=== PATIENT | female | born 1985 | race Asian ===

== ENCOUNTER 2018-07-22 09:38 | Emergency (ER) | payer OTHER, MEDICAID, SELFPAY ==
[2018-07-22 09:40] VITALS: BP 102/79; PULSE 70; RESP 14; TEMP 36.6; O2SAT 100; BMI 17.9
--- NOTE | 2018-07-22 10:26 | PC.NURSE ---
states she might be miscarrying from her visit yesterday at [facility]-. states she is approx 4-5 weeks. also reported that she doesn't think there was a heart beat or maybe ectopic. ultrasound called.
--- NOTE | 2018-07-22 10:27 | DI.US.S_ITS ---
PROCEDURE: US PELVIC COMPLETE INDICATIONS: POSITIVE HCG; BLEEDING, PAIN TECHNIQUE: Real-time scanning was performed of the pelvic organs, with image documentation. Additional endovaginal scanning was necessary due to incomplete visualization of the adnexal and endometrial structures by transabdominal scanning. COMPARISON: [facility], US, US PELVIC COMPLETE WITH TRANSVAGINAL, 07/21/2018, 17:39. FINDINGS: Transabdominal scanning: Limited scanning through the kidneys shows no hydronephrosis. No pathologic free abdominal or pelvic fluid. Endovaginal scanning: Uterus: Uterus is normal in size at the 7.6 x 4.0 x 4.9 cm. The endometrium measures 4.9 mm in combined thickness. There is no visualized intrauterine . Ovaries: The right ovary measures 26 x 17 x 29 mm. The left ovary measures 20 x 22 x 25 mm. Within the region of the right ovary there is an isoechoic solid focus of heteroechogenicity measuring 17 x 10 x 13 mm. There is a suggestion of increased vascularity. This appears slightly more defined when compared to prior exam. Within the left ovary there is a complex focus of heteroechogenicity measuring 19 x 14 x 18 mm. Immediately adjacent to this a second focus of more solid-appearing heteroechogenicity is identified measuring 31 x 20 x 22 mm. Within the lower pelvis, fluid is present appearing complex and more prominent when compared to prior exam. IMPRESSION: 1. Bilateral foci of heteroechogenicity within the ovaries, with a right ovarian soft tissue focus appearing visualized on current exam with slight appearance of increased vascularity. Previous areas of complex echogenicity within the left ovary are again identified without change. However, these do not appear to demonstrate increased vascularity. In addition, since prior exam, there has been mild increased complex fluid within the pelvis. It is noted that there is a positive test. Overall appearance is highly suspicious of ectopic /rupture, with potentially hemorrhagic pelvic fluid. 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 Dictated by: Viridiana Barillas M.D. on 07/22/2018 at 12:28 Approved by: Viridiana Barillas M.D. on 07/22/2018 at 12:48
[2018-07-22 10:54] LABS: Hematocrit 38.7 % (36-46); Hemoglobin 12.8 g/dL (12.0-16.0)
[2018-07-22 11:22] LABS: HCG Quantitative /Beta subunit 248.54 mIU/mL
--- NOTE | 2018-07-22 11:34 | ED.FEMALEGU ---
HPI - Female Genitourinary General Chief complaint: OB/Uterine Contractions Stated complaint: CRAMPING Time Seen by Provider: 07/22/18 09:47 Source: patient and family Mode of arrival: ambulatory Limitations: no limitations History of Present Illness HPI Narrative: 32-year-old female, nonsmoker presents with family in the chief complaint of episodic lower pelvic cramping with spotting. She denies provocation, palliation or radiation. She also has some burning, frequency and urgency. She was seen and evaluated at [facility] yesterday and was found to have a urinary tract infection and was prescribed an antibiotic which she has yet to fill. Furthermore she was found to be and her last normal menstrual period was around the week of June. She had labs drawn yesterday including an ultrasound which was nondiagnostic. Her HCG was 182. She states she has used 2 pads today and change them when they became a bit bloody. She has not saturated the pads and denies the passage of clots. MD Complaint: dysuria, UTI and vaginal bleeding Onset (ago): day(s) Severity: mild Quality: Aching and Cramping Duration: intermittent Relieving factors: none Exacerbating factors: movement Urinary symptoms: Dysuria, Frequency and Urgency Associated symptoms: denies other symptoms Related Data Home Medications Medication Instructions Recorded Confirmed amoxicillin 1 cap PO BID 07/22/18 07/22/18 Allergies Allergy/AdvReac Type Severity Reaction Status Date / Time No Known Drug Allergies Allergy Verified 07/22/18 09:50 Review of Systems Review of Systems All systems reviewed & are unremarkable except as noted in HPI and below Constitutional Denies chills, Denies fever(s), Denies lethargy and Denies weakness Eyes Denies change in vision, Denies eye discharge, Denies irritation and Denies loss of vision ENT Ears, Nose, Mouth, and Throat: Denies change in voice, Denies neck pain and Denies sore throat Cardiovascular Denies chest pain, Denies irregular heart rhythm, Denies lightheadedness, Denies palpitations, Denies dyspnea, Denies dyspnea on exertion and Denies orthopnea Respiratory Denies cough, Denies dyspnea, Denies dyspnea on exertion and Denies wheezing Gastrointestinal Gastrointestinal: Reports abdominal pain, Denies change in bowel habits, Denies diarrhea, Denies nausea and Denies vomiting Genitourinary Reports abnormal vaginal bleeding, Denies hematuria, Denies flank pain, Denies urinary incontinence and Reports urinary urgency Musculoskeletal Denies neck pain Integumentary/Breasts Denies pruritus, Denies erythema, Denies rash and Denies wounds Neurologic Denies confusion, Denies loss of vision and Denies weakness Psychiatric Denies anxiety, Denies confusion, Denies depression, Denies homicidal ideation and Denies suicidal ideation Endocrine Denies palpitations Hematologic/Lymphatic Denies easy bruising Allergic/Immunologic Denies wheezing [facility] Medical History Chronic hepatitis B (Acute) Social History Smoking Status: Never smoker Exam Narrative Exam Narrative: GENERAL: 32-year-old female resting comfortably, no obvious distress HEAD: Atraumatic. Normocephalic. No temporal or scalp tenderness. EYES: Pupils equal round and reactive. Extraocular motions intact. No scleral icterus. No injection or drainage. ENT: Nose without bleeding, purulent drainage or septal hematoma. Throat without erythema, tonsillar hypertrophy or exudate. Uvula midline. Airway patent. NECK: Trachea midline. No JVD or lymphadenopathy. Supple, nontender, no meningeal signs. CARDIOVASCULAR: Regular rate and rhythm without murmurs, gallops, or rubs. RESPIRATORY: Clear to auscultation. Breath sounds equal bilaterally. No wheezes, rales, or rhonchi. GASTROINTESTINAL: Abdomen soft, mild suprapubic tenderness. No hepato-splenomegaly, or palpable masses. No guarding. EXTREMITIES: No clubbing, cyanosis, or edema. No joint tenderness, effusion, or edema noted. BACK: Nontender without deformity or crepitance. No flank tenderness. NEURO: AOx3. SKIN: No rash or erythema. Initial Vital Signs Initial Vital Signs: Vital Signs Temperature 97.8 F 07/22/18 09:40 Pulse Rate 70 07/22/18 09:40 Respiratory Rate 14 07/22/18 09:40 Blood Pressure 102/79 07/22/18 09:40 Pulse Oximetry 100 07/22/18 09:40 Course Orders Ordered: ED Orders 07/22/18 10:27 US pelvic complete Stat 07/22/18 10:45 ABO RH Type Stat HCG Quantitative Stat Hemoglobin and Hematocrit Stat Consultations Consultation #1: call to Dr. Grullon. Givens table vitals, exam, and H/H she is ok to follow up at 6-7 days when HCG should be above discriminatory zone. Sooner for change in symptoms Vital Signs - 8 hr 07/22/18 09:40 07/22/18 13:21 07/22/18 13:30 Temperature 97.8 F Pulse Rate 70 71 75 Respiratory Rate 14 14 15 Blood Pressure 102/79 Blood Pressure [Right Arm] 101/78 Pulse Oximetry 100 100 100 MDM - Female Genitourinary Differential Diagnosis Likely urinary tract infection Medical Records Attestation: I reviewed the patient's medical records. Lab Data Attestation: I reviewed the patient's lab results. Result diagrams: 07/22/18 10:45 Lab Results 07/22/18 07/22/18 07/22/18 Range/Units 10:45 10:45 10:45 Hgb 12.8 (12.0-16.0) g/dL Hct 38.7 (36-46) % HCG, Quant 248.54 mIU/mL Blood Type B Positive Imaging Data Pelvic US: Radiologist's impression: Jesus Junior 32 F 1985 Allergy/Adv: No Known Drug Allergies CLOSE Pelvis Ultrasound (Signed) Viridiana Barillas - 07/22/18 Launch Image [place] [address] Ultrasound Report Signed Patient: Jesus Junior MR#: [id number] : 1985 Acct:[id number] Age/Sex: 32 / F Date of Service: 07/22/18 Loc: ED Accession Number: [id number] Procedure: US pelvic complete Ordering Provider: Ej Trejo D.O. PROCEDURE: US PELVIC COMPLETE INDICATIONS: POSITIVE HCG; BLEEDING, PAIN TECHNIQUE: Real-time scanning was performed of the pelvic organs, with image documentation. Additional endovaginal scanning was necessary due to incomplete visualization of the adnexal and endometrial structures by transabdominal scanning. COMPARISON: [facility], , US PELVIC COMPLETE WITH TRANSVAGINAL, 07/21/2018, 17:39. FINDINGS: Transabdominal scanning: Limited scanning through the kidneys shows no hydronephrosis. No pathologic free abdominal or pelvic fluid. Endovaginal scanning: Uterus: Uterus is normal in size at the 7.6 x 4.0 x 4.9 cm. The endometrium measures 4.9 mm in combined thickness. There is no visualized intrauterine . Ovaries: The right ovary measures 26 x 17 x 29 mm. The left ovary measures 20 x 22 x 25 mm. Within the region of the right ovary there is an isoechoic solid focus of heteroechogenicity measuring 17 x 10 x 13 mm. There is a suggestion of increased vascularity. This appears slightly more defined when compared to prior exam. Within the left ovary there is a complex focus of heteroechogenicity measuring 19 x 14 x 18 mm. Immediately adjacent to this a second focus of more solid-appearing heteroechogenicity is identified measuring 31 x 20 x 22 mm. Within the lower pelvis, fluid is present appearing complex and more prominent when compared to prior exam. IMPRESSION: 1. Bilateral foci of heteroechogenicity within the ovaries, with a right ovarian soft tissue focus appearing visualized on current exam with slight appearance of increased vascularity. Previous areas of complex echogenicity within the left ovary are again identified without change. However, these do not appear to demonstrate increased vascularity. In addition, since prior exam, there has been mild increased complex fluid within the pelvis. It is noted that there is a positive test. Overall appearance is highly suspicious of ectopic /rupture, with potentially hemorrhagic pelvic fluid. 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 Dictated by: Viridiana Barillas M.D. on 07/22/2018 at 12:28 Approved by: Viridiana Barillas M.D. on 07/22/2018 at 12:48 Discharge Plan Departure Patient Disposition: Home Clinical Impression: UTI (urinary tract infection), Vaginal bleeding during Instructions: DI for Urinary Tract Infection (UTI), DI for Vaginal Bleeding During Activity Restrictions/Additional Instructions: *You have been diagnosed with [ acute urinary tract infection, bleeding in , possible early miscarriage vs ectopic] *What to do: *Take medications as directed *Your lab number (beta quantitative hcg) is 248. We do not expect to see anything on ultrasound until this number is over 1500. I would expect this number to be over 1500 in about a week. You should follow up in 1 week for repeat labs and possible ultrasound *Return to ER if you should have any new, worsening or concerning symptoms, such as [fever, shaking chills, bleeding through more than 1 pad per hour for more than few hours ] Prescriptions: No Action amoxicillin 500 mg capsule 1 cap PO BID RF: 0 Referrals: Dipti Grullon MD [Physician] - Jose Luis Win MD [Non-Staff] -
--- NOTE | 2018-07-22 11:43 | ED_ITS ---
HPI - Female Genitourinary General Chief complaint: OB/Uterine Contractions Stated complaint: CRAMPING Time Seen by Provider: 07/22/18 09:47 Source: patient and family Mode of arrival: ambulatory Limitations: no limitations History of Present Illness HPI Narrative: 32-year-old female, nonsmoker presents with family in the chief complaint of episodic lower pelvic cramping with spotting. She denies provocation, palliation or radiation. She also has some burning, frequency and urgency. She was seen and evaluated at [facility] yesterday and was found to have a urinary tract infection and was prescribed an antibiotic which she has yet to fill. Furthermore she was found to be and her last normal menstrual period was around the week of June. She had labs drawn yesterday including an ultrasound which was nondiagnostic. Her HCG was 182. She states she has used 2 pads today and change them when they became a bit bloody. She has not saturated the pads and denies the passage of clots. MD Complaint: dysuria, UTI and vaginal bleeding Onset (ago): day(s) Severity: mild Quality: Aching and Cramping Duration: intermittent Relieving factors: none Exacerbating factors: movement Urinary symptoms: Dysuria, Frequency and Urgency Associated symptoms: denies other symptoms Related Data Home Medications Medication Instructions Recorded Confirmed amoxicillin 1 cap PO BID 07/22/18 07/22/18 Allergies Allergy/AdvReac Type Severity Reaction Status Date / Time No Known Drug Allergies Allergy Verified 07/22/18 09:50 Review of Systems Review of Systems All systems reviewed & are unremarkable except as noted in HPI and below Constitutional Denies chills, Denies fever(s), Denies lethargy and Denies weakness Eyes Denies change in vision, Denies eye discharge, Denies irritation and Denies loss of vision ENT Ears, Nose, Mouth, and Throat: Denies change in voice, Denies neck pain and Denies sore throat Cardiovascular Denies chest pain, Denies irregular heart rhythm, Denies lightheadedness, Denies palpitations, Denies dyspnea, Denies dyspnea on exertion and Denies orthopnea Respiratory Denies cough, Denies dyspnea, Denies dyspnea on exertion and Denies wheezing Gastrointestinal Gastrointestinal: Reports abdominal pain, Denies change in bowel habits, Denies diarrhea, Denies nausea and Denies vomiting Genitourinary Reports abnormal vaginal bleeding, Denies hematuria, Denies flank pain, Denies urinary incontinence and Reports urinary urgency Musculoskeletal Denies neck pain Integumentary/Breasts Denies pruritus, Denies erythema, Denies rash and Denies wounds Neurologic Denies confusion, Denies loss of vision and Denies weakness Psychiatric Denies anxiety, Denies confusion, Denies depression, Denies homicidal ideation and Denies suicidal ideation Endocrine Denies palpitations Hematologic/Lymphatic Denies easy bruising Allergic/Immunologic Denies wheezing [facility] Medical History Chronic hepatitis B (Acute) Social History Smoking Status: Never smoker Exam Narrative Exam Narrative: GENERAL: 32-year-old female resting comfortably, no obvious distress HEAD: Atraumatic. Normocephalic. No temporal or scalp tenderness. EYES: Pupils equal round and reactive. Extraocular motions intact. No scleral icterus. No injection or drainage. ENT: Nose without bleeding, purulent drainage or septal hematoma. Throat without erythema, tonsillar hypertrophy or exudate. Uvula midline. Airway patent. NECK: Trachea midline. No JVD or lymphadenopathy. Supple, nontender, no meningeal signs. CARDIOVASCULAR: Regular rate and rhythm without murmurs, gallops, or rubs. RESPIRATORY: Clear to auscultation. Breath sounds equal bilaterally. No wheezes , rales, or rhonchi. GASTROINTESTINAL: Abdomen soft, mild suprapubic tenderness. No hepato- splenomegaly, or palpable masses. No guarding. EXTREMITIES: No clubbing, cyanosis, or edema. No joint tenderness, effusion, or edema noted. BACK: Nontender without deformity or crepitance. No flank tenderness. NEURO: AOx3. SKIN: No rash or erythema. Initial Vital Signs Initial Vital Signs: Vital Signs Temperature 97.8 F 07/22/18 09:40 Pulse Rate 70 07/22/18 09:40 Respiratory Rate 14 07/22/18 09:40 Blood Pressure 102/79 07/22/18 09:40 Pulse Oximetry 100 07/22/18 09:40 Course Orders Ordered: ED Orders 07/22/18 10:27 US pelvic complete Stat 07/22/18 10:45 ABO RH Type Stat HCG Quantitative Stat Hemoglobin and Hematocrit Stat Consultations Consultation #1: call to Dr. Grullon. Givens table vitals, exam, and H/H she is ok to follow up at 6-7 days when HCG should be above discriminatory zone. Sooner for change in symptoms Vital Signs - 8 hr 07/22/18 09:40 07/22/18 13:21 07/22/18 13:30 Temperature 97.8 F Pulse Rate 70 71 75 Respiratory Rate 14 14 15 Blood Pressure 102/79 Blood Pressure [Right Arm] 101/78 Pulse Oximetry 100 100 100 MDM - Female Genitourinary Differential Diagnosis Likely urinary tract infection Medical Records Attestation: I reviewed the patient's medical records. Lab Data Attestation: I reviewed the patient's lab results. Result diagrams: 07/22/18 10:45 Lab Results 07/22/18 07/22/18 07/22/18 Range/Units 10:45 10:45 10:45 Hgb 12.8 (12.0-16.0) g/dL Hct 38.7 (36-46) % HCG, Quant 248.54 mIU/mL Blood Type B Positive Imaging Data Pelvic US: Radiologist's impression: Jesus Junior 32 F 1985 Allergy/Adv: No Known Drug Allergies CLOSE Pelvis Ultrasound (Signed) Viridiana Barillas - 07/22/18 Launch [place] [address] Ultrasound Report Signed Patient: Jesus Junior MR#: [id number] : 1985 Acct:[id number] Age/Sex: 32 / F Date of Service: 07/22/18 Loc: ED Accession Number: [id number] Procedure: US pelvic complete Ordering Provider: Ej Trejo D.O. PROCEDURE: US PELVIC COMPLETE INDICATIONS: POSITIVE HCG; BLEEDING, PAIN TECHNIQUE: Real-time scanning was performed of the pelvic organs, with image documentation. Additional endovaginal scanning was necessary due to incomplete visualization of the adnexal and endometrial structures by transabdominal scanning. COMPARISON: [facility], , US PELVIC COMPLETE WITH TRANSVAGINAL, 07/21/2018, 17:39. FINDINGS: Transabdominal scanning: Limited scanning through the kidneys shows no hydronephrosis. No pathologic free abdominal or pelvic fluid. Endovaginal scanning: Uterus: Uterus is normal in size at the 7.6 x 4.0 x 4.9 cm. The endometrium measures 4.9 mm in combined thickness. There is no visualized intrauterine . Ovaries: The right ovary measures 26 x 17 x 29 mm. The left ovary measures 20 x 22 x 25 mm. Within the region of the right ovary there is an isoechoic solid focus of heteroechogenicity measuring 17 x 10 x 13 mm. There is a suggestion of increased vascularity. This appears slightly more defined when compared to prior exam. Within the left ovary there is a complex focus of heteroechogenicity measuring 19 x 14 x 18 mm. Immediately adjacent to this a second focus of more solid-appearing heteroechogenicity is identified measuring 31 x 20 x 22 mm. Within the lower pelvis, fluid is present appearing complex and more prominent when compared to prior exam. IMPRESSION: 1. Bilateral foci of heteroechogenicity within the ovaries, with a right ovarian soft tissue focus appearing visualized on current exam with slight appearance of increased vascularity. Previous areas of complex echogenicity within the left ovary are again identified without change. However, these do not appear to demonstrate increased vascularity. In addition, since prior exam, there has been mild increased complex fluid within the pelvis. It is noted that there is a positive test. Overall appearance is highly suspicious of ectopic /rupture, with potentially hemorrhagic pelvic fluid. 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 Dictated by: Viridiana Barillas M.D. on 07/22/2018 at 12:28 Approved by: Viridiana Barillas M.D. on 07/22/2018 at 12:48 Discharge Plan Departure Patient Disposition: Home Clinical Impression: UTI (urinary tract infection), Vaginal bleeding during Instructions: DI for Urinary Tract Infection (UTI), DI for Vaginal Bleeding During Activity Restrictions/Additional Instructions: *You have been diagnosed with [ acute urinary tract infection, bleeding in , possible early miscarriage vs ectopic] *What to do: *Take medications as directed *Your lab number (beta quantitative hcg) is 248. We do not expect to see anything on ultrasound until this number is over 1500. I would expect this number to be over 1500 in about a week. You should follow up in 1 week for repeat labs and possible ultrasound *Return to ER if you should have any new, worsening or concerning symptoms , such as [fever, shaking chills, bleeding through more than 1 pad per hour for more than few hours ] Prescriptions: No Action amoxicillin 500 mg capsule 1 cap PO BID RF: 0 Referrals: Dipti Grullon MD [Physician] - Jose Luis Win MD [Non-Staff] -
[2018-07-22 13:21] VITALS: PULSE 71; RESP 14; O2SAT 100
[2018-07-22 13:30] VITALS: BP 101/78; PULSE 75; RESP 15; O2SAT 100
== END 2018-07-22 13:47 | disposition home or self-care (01) ==
PROVIDERS: Emergency Provider Emergency Medicine
DX: O23.41 Unspecified infection of urinary tract in pregnancy, first trimester (principal); O20.9 Hemorrhage in early pregnancy, unspecified
CPT/HCPCS: 36415; 76830; 76856; 84702; 85014; 85018; 86900; 86901; 99282; 99284

== ENCOUNTER 2018-07-28 15:38 | Emergency (ER) | payer OTHER, MEDICAID, SELFPAY ==
[2018-07-28 15:45] VITALS: BP 111/70; PULSE 85; RESP 20; TEMP 36.6; O2SAT 97
--- NOTE | 2018-07-28 16:39 | ED.RECABL ---
HPI - Recheck/Abnormal Lab/Rx <RHODA Tipton - Last Filed: 07/28/18 21:27> General Chief Complaint: Recheck/Abnormal Lab/Rx Stated Complaint: uti,vaginal bleeding during Time Seen by Provider: 07/28/18 16:39 Source: patient Mode of arrival: ambulatory Limitations: no limitations History of Present Illness HPI narrative: 32-year-old healthy female that is a nonsmoker here for complaint of continued left lower quadrant pain over the past couple of weeks. She also reports that she has had vaginal bleeding since the of July. She was seen in the emergency room on the sec and had a positive hcg of 250. Ultrasound was un conclusive but did show an area that appeared to be a cyst to the left ovarian area. No intrauterine findings were appreciated. She reports that she is using approximately 2 pads a day. Pain is mostly to the left pubic region and does radiate to the right side. She denies any urinary symptoms. She was unable to follow up with OB as instructed so she return to the emergency room. Related Data Previous Rx's Medication Instructions Recorded oxycodone 5 mg PO Q4-6H PRN #20 tab 07/28/18 Allergies Allergy/AdvReac Type Severity Reaction Status Date / Time No Known Drug Allergies Allergy Verified 07/22/18 09:50 Review of Systems <RHODA Tipton - Last Filed: 07/28/18 21:27> Constitutional Denies chills, Denies fever(s), Denies lethargy and Denies weakness Eyes Denies change in vision, Denies eye discharge, Denies irritation and Denies loss of vision ENT Ears, Nose, Mouth, and Throat: Denies change in voice, Denies neck pain and Denies sore throat Cardiovascular Denies chest pain, Denies irregular heart rhythm, Denies lightheadedness, Denies palpitations, Denies dyspnea, Denies dyspnea on exertion and Denies orthopnea Respiratory Denies cough, Denies dyspnea, Denies dyspnea on exertion and Denies wheezing Gastrointestinal Gastrointestinal: Denies abdominal pain, Denies change in bowel habits, Denies diarrhea, Denies nausea and Denies vomiting Genitourinary Comments: Left pelvic pain vaginal bleeding with Musculoskeletal Denies neck pain Integumentary/Breasts Denies pruritus, Denies erythema, Denies rash and Denies wounds Neurologic Denies confusion, Denies loss of vision and Denies weakness Psychiatric Denies anxiety, Denies confusion, Denies depression, Denies homicidal ideation and Denies suicidal ideation Endocrine Denies palpitations Hematologic/Lymphatic Denies easy bruising Allergic/Immunologic Denies wheezing Exam <RHODA Tipton - Last Filed: 07/28/18 21:27> Initial Vital Signs Initial Vital Signs: Vital Signs Temperature 97.8 F 07/28/18 15:45 Pulse Rate 85 07/28/18 15:45 Respiratory Rate 20 07/28/18 15:45 Blood Pressure 111/70 07/28/18 15:45 Pulse Oximetry 97 07/28/18 15:45 Const General: cooperative and well developed Nutritional Appearance: well nourished Orientation: alert, awake, oriented x3 and not confused HENMT Mouth: oral mucosae normal and moist mucous membranes Eyes Conjunctivae: conjunctivae normal Sclera: sclerae normal Pupils: PERRL EOM: EOM intact bilaterally Resp Effort & Inspection: normal respiratory effort, able to speak in complete sentences, no respiratory distress and no use of accessory muscles Auscultation: clear to auscultation bilaterally, no rales, no rhonchi and no wheezes Cardio Rate: regular rate Rhythm: regular rhythm Heart Sounds: no click, no gallops, no murmurs and no rubs Pulses: normal peripheral pulses GI Inspection: non-distended Palpation: soft, no hepatosplenomegaly, No guarding, No pulsatile mass and tender Auscultation: normal bowel sounds Other: Tenderness on palpation to the left pelvic region. General: No CVA tenderness Skin General: no rashes or lesions noted, No jaundice and No petechiae Neuro General: alert, oriented x3, gait normal and no focal motor deficits Speech: speech normal <Natasha Paniagua DO - Last Filed: 07/29/18 04:13> Initial Vital Signs Initial Vital Signs: Vital Signs Temperature 97.8 F 07/28/18 15:45 Pulse Rate 85 07/28/18 15:45 Respiratory Rate 20 07/28/18 15:45 Blood Pressure 111/70 07/28/18 15:45 Pulse Oximetry 97 07/28/18 15:45 Course <RHODA Tipton - Last Filed: 07/28/18 21:27> Orders Ordered: Discontinued Medications Oxycodone/Acetaminophen (Percocet 5/325) 1 tab PO NOW ONE Stop: 07/28/18 19:20 Last Admin: 07/28/18 19:31 Dose: 1 tab Rho Immune Globulin (Hyperrho S-D) 1,000 unit IM NOW ONE Stop: 07/28/18 20:31 Vital Signs - 8 hr 07/28/18 15:45 07/28/18 17:07 07/28/18 19:41 Temperature 97.8 F Pulse Rate 85 81 83 Respiratory Rate 20 16 17 Blood Pressure 111/70 Blood Pressure [Right Arm] 96/61 105/81 Pulse Oximetry 97 100 99 <Natasha Paniagua DO - Last Filed: 07/29/18 04:13> Orders Ordered: Discontinued Medications Oxycodone/Acetaminophen (Percocet 5/325) 1 tab PO NOW ONE Stop: 07/28/18 19:20 Last Admin: 07/28/18 19:31 Dose: 1 tab Rho Immune Globulin (Hyperrho S-D) 1,000 unit IM NOW ONE Stop: 07/28/18 20:31 Vital Signs - 8 hr 07/28/18 15:45 07/28/18 17:07 07/28/18 19:41 Temperature 97.8 F Pulse Rate 85 81 83 Respiratory Rate 20 16 17 Blood Pressure 111/70 Blood Pressure [Right Arm] 96/61 105/81 Pulse Oximetry 97 100 99 MDM - Recheck/Abnormal Lab/Rx <RHODA Tipton - Last Filed: 07/28/18 21:27> Lab Data Result diagrams: 07/28/18 17:40 07/28/18 17:40 Lab Results 07/28/18 07/28/18 Range/Units 17:40 17:40 WBC 9.3 (4.5-11.0) X10^3/uL RBC 3.97 L (4.0-5.2) X10^6/uL Hgb 12.0 (12.0-16.0) g/dL Hct 36.0 (36-46) % MCV 90.6 (80-100) fL MCH 30.3 (26-34) PG MCHC 33.4 (30-36) % RDW 13.9 (11.6-14.8) % Plt Count 254 (150-400) X10^3/uL Neut % (Auto) 59.2 (50-75) % Lymph % (Auto) 31.8 (25-40) % [place] % (Auto) 4.4 (3-14) % Eos % (Auto) 3.4 (2-4) % Baso % (Auto) 1.2 (0-2) % Neut # (Auto) 5500 (3062-9957) /uL Sodium 142 (137-145) mmol/L Potassium 4.0 (3.4-5.1) mmol/L Chloride 103 (98-107) mmol/L Carbon Dioxide 26 (22-32) mmol/L BUN 17 (7-17) mg/dL Creatinine 0.60 (0.52-1.04) mg/dL Estimated GFR > 60.0 (>60) mL/min BUN/Creatinine Ratio 28.3 H (6-22) Glucose 81 (70-100) mg/dL Calcium 9.6 (8.4-10.2) mg/dL Total Bilirubin 0.2 (0.2-1.3) mg/dL AST 22 (14-36) IU/L ALT 18 (9-52) IU/L Alkaline Phosphatase 51 (38-126) U/L Total Protein 8.0 (6.3-8.2) g/dL Albumin 4.5 (3.5-5.0) g/dL Globulin 3.5 (1.7-4.1) g/dL Albumin/Globulin Ratio 1.3 (1.0-2.8) HCG, Quant 193.46 mIU/mL Urine Dip Bedside Urine Glucose Negative Bedside Urine Bilirubin - Negative Bedside Urine Ketone - Negative Urine Specific [place] 1.020 Bedside Urine Occult Blood + Bedside Urine pH 7.0 Bedside Urine Protein - Negative Bedside Urine Urobilinogen - Negative Bedside Urine Nitrite - Negative Bedside Urine Leukocytes - Negative Esterase Imaging Data Ob ultrasound : Radiologist's impression: [address] [address] Ultrasound Report Signed Patient: Jesus Junior MR#: [id number] : 1985 Acct:[id number] Age/Sex: 32 / F Date of Service: 07/28/18 Loc: ED Accession Number: [id number] Procedure: US pelvic complete Ordering Provider: Flakito Chicas PROCEDURE: US PELVIC COMPLETE INDICATIONS: Continued vaginal bleeding with positive TECHNIQUE: Real-time scanning was performed of the pelvic organs, with image documentation. Additional endovaginal scanning was necessary due to incomplete visualization of the adnexal and endometrial structures by transabdominal scanning. COMPARISON: [facility], US, US PELVIC COMPLETE, 07/22/2018, 11:19. FINDINGS: Transabdominal scanning: Limited scanning through the kidneys shows no hydronephrosis. Moderate abnormal complex adnexal fluid is seen, which is consistent with hemorrhage. Endovaginal scanning: Uterus: Uterus is normal in size at the 6.9 x 3.3 cm. The endometrium measures 4 mm in combined thickness. No findings of an intrauterine can be seen. Ovaries: The left ovary is not definitely seen. 2 masses are seen within the left adnexal region, with one demonstrating an apparent gestational sac with yolk sac with in it, with a mean gestational sac diameter of 0.6 cm, which corresponds to a gestational age of 5 weeks 2 days. This larger mass measures 3.9 x 2.1 x 2.3 cm. An additional left adnexal mass is seen measuring 2.1 x 1.7 x 1.8 cm. The right ovary measures 2.4 x 1.5 x 2.1 cm and demonstrates no significant abnormality. IMPRESSION: Ectopic until proven otherwise, with a mass with an apparent yolk sac seen within it within the left adnexal region. Free hemorrhagic fluid can be seen within the pelvis. Note: Concordant preliminary findings given by the aircraft powerplant repairer upon the completion of the examination to RHODA Tipton at 1740 hrs. [place] time on July 28, 2018. Dictated by: Jorge Gill M.D. on 07/28/2018 at 16:58 Approved by: Jorge Gill M.D. on 07/28/2018 at 17:04 MDM Narrative Medical decision making narrative: CBC and Chem panel were obtained were unremarkable. ECG was decreased today at 193 compared to 248 on the . Ultrasound was obtained and shows no intrauterine products of conception. It was read by Radiology as showing findings concerning for ectopic . Discussed case with Dr. Janis AGEE who came and evaluated patient will follow up with patient next week. Dr. Bruce thinks that her symptoms is due to a corpus luteum cyst vice ectopic . She is instructed to return emergency room for any worsening symptoms follow-up with OBGYN as directed. <Natasha Arcelia, DO - Last Filed: 07/29/18 04:13> Lab Data Lab Results 07/28/18 07/28/18 Range/Units 17:40 17:40 WBC 9.3 (4.5-11.0) X10^3/uL RBC 3.97 L (4.0-5.2) X10^6/uL Hgb 12.0 (12.0-16.0) g/dL Hct 36.0 (36-46) % MCV 90.6 (80-100) fL MCH 30.3 (26-34) PG MCHC 33.4 (30-36) % RDW 13.9 (11.6-14.8) % Plt Count 254 (150-400) X10^3/uL Neut % (Auto) 59.2 (50-75) % Lymph % (Auto) 31.8 (25-40) % [place] % (Auto) 4.4 (3-14) % Eos % (Auto) 3.4 (2-4) % Baso % (Auto) 1.2 (0-2) % Neut # (Auto) 5500 (6258-2510) /uL Sodium 142 (137-145) mmol/L Potassium 4.0 (3.4-5.1) mmol/L Chloride 103 (98-107) mmol/L Carbon Dioxide 26 (22-32) mmol/L BUN 17 (7-17) mg/dL Creatinine 0.60 (0.52-1.04) mg/dL Estimated GFR > 60.0 (>60) mL/min BUN/Creatinine Ratio 28.3 H (6-22) Glucose 81 (70-100) mg/dL Calcium 9.6 (8.4-10.2) mg/dL Total Bilirubin 0.2 (0.2-1.3) mg/dL AST 22 (14-36) IU/L ALT 18 (9-52) IU/L Alkaline Phosphatase 51 (38-126) U/L Total Protein 8.0 (6.3-8.2) g/dL Albumin 4.5 (3.5-5.0) g/dL Globulin 3.5 (1.7-4.1) g/dL Albumin/Globulin Ratio 1.3 (1.0-2.8) HCG, Quant 193.46 mIU/mL Urine Dip Bedside Urine Glucose Negative Bedside Urine Bilirubin - Negative Bedside Urine Ketone - Negative Urine Specific [place] 1.020 Bedside Urine Occult Blood + Bedside Urine pH 7.0 Bedside Urine Protein - Negative Bedside Urine Urobilinogen - Negative Bedside Urine Nitrite - Negative Bedside Urine Leukocytes - Negative Esterase Discharge Plan Departure Patient Disposition: Home Clinical Impression: Corpus luteum cyst, Spontaneous Discharge Date/Time: 07/28/18 19:53 Interventions: ED Discharge Assessment Last Done: 07/28/18 19:49 Instructions: DI for Ovarian Cyst Activity Restrictions/Additional Instructions: Laboratory results today show a decrease in HCG indicating that is no longer viable. Ultrasound findings consistent with ovarian cyst to the left ovary area. OBGYN seen you in the emergency room today and will follow up with you next week. Follow up with them as scheduled. Use pain medications as prescribed for discomfort. For any worsening symptoms return to the emergency room. Prescriptions: New oxycodone 5 mg tablet 5 mg PO Q4-6H PRN (Reason: pain) Qty: 20 RF: 0 Discontinued amoxicillin 500 mg capsule 1 cap PO BID RF: 0 Referrals: Jakob Bruce MD [Physician] - Jose Luis Win MD [Non-Staff] - 08/04/18 12:00 am Stand Alone Forms: Work Release Note <Natasha Paniagua DO - Last Filed: 07/29/18 04:13> Cosign ED Attending Qamarature Attestation: I was immediately available in the department for consultation. Documentation has been reviewed. I agree with assessment and plan.
[2018-07-28 17:07] VITALS: BP 96/61; PULSE 81; RESP 16; O2SAT 100
--- NOTE | 2018-07-28 17:12 | DI.US.S_ITS ---
PROCEDURE: US PELVIC COMPLETE INDICATIONS: Continued vaginal bleeding with positive TECHNIQUE: Real-time scanning was performed of the pelvic organs, with image documentation. Additional endovaginal scanning was necessary due to incomplete visualization of the adnexal and endometrial structures by transabdominal scanning. COMPARISON: [facility], , US PELVIC COMPLETE, 07/22/2018, 11:19. FINDINGS: Transabdominal scanning: Limited scanning through the kidneys shows no hydronephrosis. Moderate abnormal complex adnexal fluid is seen, which is consistent with hemorrhage. Endovaginal scanning: Uterus: Uterus is normal in size at the 6.9 x 3.3 cm. The endometrium measures 4 mm in combined thickness. No findings of an intrauterine can be seen. Ovaries: The left ovary is not definitely seen. 2 masses are seen within the left adnexal region, with one demonstrating an apparent gestational sac with yolk sac with in it, with a mean gestational sac diameter of 0.6 cm, which corresponds to a gestational age of 5 weeks 2 days. This larger mass measures 3.9 x 2.1 x 2.3 cm. An additional left adnexal mass is seen measuring 2.1 x 1.7 x 1.8 cm. The right ovary measures 2.4 x 1.5 x 2.1 cm and demonstrates no significant abnormality. IMPRESSION: Ectopic until proven otherwise, with a mass with an apparent yolk sac seen within it within the left adnexal region. Free hemorrhagic fluid can be seen within the pelvis. Note: Concordant preliminary findings given by the livestock haulier upon the completion of the examination to RHODA Tipton at 1740 hrs. [place] time on July 28, 2018. Dictated by: Jorge Gill M.D. on 07/28/2018 at 16:58 Approved by: Jorge Gill M.D. on 07/28/2018 at 17:04
[2018-07-28 17:45] LABS: Add Manual Diff / Slide Review NO; Basophils Percent Auto 1.2 % (0-2); Eosinophils Percent Auto 3.4 % (2-4); Lymphocytes Percent Auto 31.8 % (25-40); Mean Corpuscular HGB Conc 33.4 % (30-36); Mean Corpuscular Hemoglobin 30.3 PG (26-34); Mean Corpuscular Volume 90.6 fL (80-100); Monocytes Percent Auto 4.4 % (3-14); Neutrophils Absolute Auto 5500 /uL (1500-7000); Neutrophils Percent Auto 59.2 % (50-75); Platelet Count 254 X10^3/uL (150-400); Red Blood Cell Count 3.97 X10^6/uL (4.0-5.2); Red Cell Distribution Width 13.9 % (11.6-14.8); White Blood Cell Count 9.3 X10^3/uL (4.5-11.0)
[2018-07-28 18:03] LABS: Alanine Aminotransferase 18 IU/L (9-52); Albumin 4.5 g/dL (3.5-5.0); Albumin Globulin Ratio 1.3 (1.0-2.8); Alkaline Phosphatase 51 U/L (38-126); Aspartate Aminotransferase 22 IU/L (14-36); BUN Creatinine Ratio 28.3 (6-22); Bilirubin Total 0.2 mg/dL (0.2-1.3); Blood Urea Nitrogen 17 mg/dL (7-17); Calcium 9.6 mg/dL (8.4-10.2); Carbon Dioxide 26 mmol/L (22-32); Chloride 103 mmol/L (98-107); Estimated Glomerular Filt Rate > 60.0 mL/min (>60); Globulin 3.5 g/dL (1.7-4.1); Glucose 81 mg/dL (70-100); HEMOLYSIS < 15 (0-50); Sodium 142 mmol/L (137-145)
[2018-07-28 18:19] LABS: HCG Quantitative /Beta subunit 193.46 mIU/mL
--- NOTE | 2018-07-28 18:54 | ED_ITS ---
HPI - Recheck/Abnormal Lab/Rx <RHODA Tipton - Last Filed: 07/28/18 21:27> General Chief Complaint: Recheck/Abnormal Lab/Rx Stated Complaint: uti,vaginal bleeding during Time Seen by Provider: 07/28/18 16:39 Source: patient Mode of arrival: ambulatory Limitations: no limitations History of Present Illness HPI narrative: 32-year-old healthy female that is a nonsmoker here for complaint of continued left lower quadrant pain over the past couple of weeks. She also reports that she has had vaginal bleeding since the of July. She was seen in the emergency room on the sec and had a positive hcg of 250. Ultrasound was un conclusive but did show an area that appeared to be a cyst to the left ovarian area. No intrauterine findings were appreciated. She reports that she is using approximately 2 pads a day. Pain is mostly to the left pubic region and does radiate to the right side. She denies any urinary symptoms. She was unable to follow up with OB as instructed so she return to the emergency room. Related Data Previous Rx's Medication Instructions Recorded oxycodone 5 mg PO Q4-6H PRN #20 tab 07/28/18 Allergies Allergy/AdvReac Type Severity Reaction Status Date / Time No Known Drug Allergies Allergy Verified 07/22/18 09:50 Review of Systems <RHODA Tipton - Last Filed: 07/28/18 21:27> Constitutional Denies chills, Denies fever(s), Denies lethargy and Denies weakness Eyes Denies change in vision, Denies eye discharge, Denies irritation and Denies loss of vision ENT Ears, Nose, Mouth, and Throat: Denies change in voice, Denies neck pain and Denies sore throat Cardiovascular Denies chest pain, Denies irregular heart rhythm, Denies lightheadedness, Denies palpitations, Denies dyspnea, Denies dyspnea on exertion and Denies orthopnea Respiratory Denies cough, Denies dyspnea, Denies dyspnea on exertion and Denies wheezing Gastrointestinal Gastrointestinal: Denies abdominal pain, Denies change in bowel habits, Denies diarrhea, Denies nausea and Denies vomiting Genitourinary Comments: Left pelvic pain vaginal bleeding with Musculoskeletal Denies neck pain Integumentary/Breasts Denies pruritus, Denies erythema, Denies rash and Denies wounds Neurologic Denies confusion, Denies loss of vision and Denies weakness Psychiatric Denies anxiety, Denies confusion, Denies depression, Denies homicidal ideation and Denies suicidal ideation Endocrine Denies palpitations Hematologic/Lymphatic Denies easy bruising Allergic/Immunologic Denies wheezing Exam <RHODA Tipton - Last Filed: 07/28/18 21:27> Initial Vital Signs Initial Vital Signs: Vital Signs Temperature 97.8 F 07/28/18 15:45 Pulse Rate 85 07/28/18 15:45 Respiratory Rate 20 07/28/18 15:45 Blood Pressure 111/70 07/28/18 15:45 Pulse Oximetry 97 07/28/18 15:45 Const General: cooperative and well developed Nutritional Appearance: well nourished Orientation: alert, awake, oriented x3 and not confused HENMT Mouth: oral mucosae normal and moist mucous membranes Eyes Conjunctivae: conjunctivae normal Sclera: sclerae normal Pupils: PERRL EOM: EOM intact bilaterally Resp Effort & Inspection: normal respiratory effort, able to speak in complete sentences, no respiratory distress and no use of accessory muscles Auscultation: clear to auscultation bilaterally, no rales, no rhonchi and no wheezes Cardio Rate: regular rate Rhythm: regular rhythm Heart Sounds: no click, no gallops, no murmurs and no rubs Pulses: normal peripheral pulses GI Inspection: non-distended Palpation: soft, no hepatosplenomegaly, No guarding, No pulsatile mass and tender Auscultation: normal bowel sounds Other: Tenderness on palpation to the left pelvic region. General: No CVA tenderness Skin General: no rashes or lesions noted, No jaundice and No petechiae Neuro General: alert, oriented x3, gait normal and no focal motor deficits Speech: speech normal <Natasha Paniagua DO - Last Filed: 07/29/18 04:13> Initial Vital Signs Initial Vital Signs: Vital Signs Temperature 97.8 F 07/28/18 15:45 Pulse Rate 85 07/28/18 15:45 Respiratory Rate 20 07/28/18 15:45 Blood Pressure 111/70 07/28/18 15:45 Pulse Oximetry 97 07/28/18 15:45 Course <RHODA Tipton - Last Filed: 07/28/18 21:27> Orders Ordered: Discontinued Medications Oxycodone/Acetaminophen (Percocet 5/325) 1 tab PO NOW ONE Stop: 07/28/18 19:20 Last Admin: 07/28/18 19:31 Dose: 1 tab Rho Immune Globulin (Hyperrho S-D) 1,000 unit IM NOW ONE Stop: 07/28/18 20:31 Vital Signs - 8 hr 07/28/18 15:45 07/28/18 17:07 07/28/18 19:41 Temperature 97.8 F Pulse Rate 85 81 83 Respiratory Rate 20 16 17 Blood Pressure 111/70 Blood Pressure [Right Arm] 96/61 105/81 Pulse Oximetry 97 100 99 <Natasha Paniagua DO - Last Filed: 07/29/18 04:13> Orders Ordered: Discontinued Medications Oxycodone/Acetaminophen (Percocet 5/325) 1 tab PO NOW ONE Stop: 07/28/18 19:20 Last Admin: 07/28/18 19:31 Dose: 1 tab Rho Immune Globulin (Hyperrho S-D) 1,000 unit IM NOW ONE Stop: 07/28/18 20:31 Vital Signs - 8 hr 07/28/18 15:45 07/28/18 17:07 07/28/18 19:41 Temperature 97.8 F Pulse Rate 85 81 83 Respiratory Rate 20 16 17 Blood Pressure 111/70 Blood Pressure [Right Arm] 96/61 105/81 Pulse Oximetry 97 100 99 MDM - Recheck/Abnormal Lab/Rx <RHODA Tipton - Last Filed: 07/28/18 21:27> Lab Data Result diagrams: 07/28/18 17:40 07/28/18 17:40 Lab Results 07/28/18 07/28/18 Range/Units 17:40 17:40 WBC 9.3 (4.5-11.0) X10^3/uL RBC 3.97 L (4.0-5.2) X10^6/uL Hgb 12.0 (12.0-16.0) g/dL Hct 36.0 (36-46) % MCV 90.6 (80-100) fL MCH 30.3 (26-34) PG MCHC 33.4 (30-36) % RDW 13.9 (11.6-14.8) % Plt Count 254 (150-400) X10^3/uL Neut % (Auto) 59.2 (50-75) % Lymph % (Auto) 31.8 (25-40) % [place] % (Auto) 4.4 (3-14) % Eos % (Auto) 3.4 (2-4) % Baso % (Auto) 1.2 (0-2) % Neut # (Auto) 5500 (8333-2227) /uL Sodium 142 (137-145) mmol/L Potassium 4.0 (3.4-5.1) mmol/L Chloride 103 (98-107) mmol/L Carbon Dioxide 26 (22-32) mmol/L BUN 17 (7-17) mg/dL Creatinine 0.60 (0.52-1.04) mg/dL Estimated GFR > 60.0 (>60) mL/min BUN/Creatinine Ratio 28.3 H (6-22) Glucose 81 (70-100) mg/dL Calcium 9.6 (8.4-10.2) mg/dL Total Bilirubin 0.2 (0.2-1.3) mg/dL AST 22 (14-36) IU/L ALT 18 (9-52) IU/L Alkaline Phosphatase 51 (38-126) U/L Total Protein 8.0 (6.3-8.2) g/dL Albumin 4.5 (3.5-5.0) g/dL Globulin 3.5 (1.7-4.1) g/dL Albumin/Globulin Ratio 1.3 (1.0-2.8) HCG, Quant 193.46 mIU/mL Urine Dip Bedside Urine Glucose Negative Bedside Urine Bilirubin - Negative Bedside Urine Ketone - Negative Urine Specific [place] 1.020 Bedside Urine Occult Blood + Bedside Urine pH 7.0 Bedside Urine Protein - Negative Bedside Urine Urobilinogen - Negative Bedside Urine Nitrite - Negative Bedside Urine Leukocytes - Negative Esterase Imaging Data Ob ultrasound : Radiologist's impression: [address] [address] Ultrasound Report Signed Patient: Jesus Junior MR#: [id number] : 1985 Acct:[id number] Age/Sex: 32 / F Date of Service: 07/28/18 Loc: ED Accession Number: [id number] Procedure: US pelvic complete Ordering Provider: Flakito Chicas PROCEDURE: US PELVIC COMPLETE INDICATIONS: Continued vaginal bleeding with positive TECHNIQUE: Real-time scanning was performed of the pelvic organs, with image documentation. Additional endovaginal scanning was necessary due to incomplete visualization of the adnexal and endometrial structures by transabdominal scanning. COMPARISON: [facility], US, US PELVIC COMPLETE, 07/22/2018, 11:19. FINDINGS: Transabdominal scanning: Limited scanning through the kidneys shows no hydronephrosis. Moderate abnormal complex adnexal fluid is seen, which is consistent with hemorrhage. Endovaginal scanning: Uterus: Uterus is normal in size at the 6.9 x 3.3 cm. The endometrium measures 4 mm in combined thickness. No findings of an intrauterine can be seen. Ovaries: The left ovary is not definitely seen. 2 masses are seen within the left adnexal region, with one demonstrating an apparent gestational sac with yolk sac with in it, with a mean gestational sac diameter of 0.6 cm, which corresponds to a gestational age of 5 weeks 2 days. This larger mass measures 3.9 x 2.1 x 2.3 cm. An additional left adnexal mass is seen measuring 2.1 x 1.7 x 1.8 cm. The right ovary measures 2.4 x 1.5 x 2.1 cm and demonstrates no significant abnormality. IMPRESSION: Ectopic until proven otherwise, with a mass with an apparent yolk sac seen within it within the left adnexal region. Free hemorrhagic fluid can be seen within the pelvis. Note: Concordant preliminary findings given by the pharmacy delivery driver upon the completion of the examination to RHODA Tipton at 1740 hrs. [place] time on July 28, 2018. Dictated by: Jorge Gill M.D. on 07/28/2018 at 16:58 Approved by: Jorge Gill M.D. on 07/28/2018 at 17:04 MDM Narrative Medical decision making narrative: CBC and Chem panel were obtained were unremarkable. ECG was decreased today at 193 compared to 248 on the . Ultrasound was obtained and shows no intrauterine products of conception. It was read by Radiology as showing findings concerning for ectopic . Discussed case with Dr. Janis AGEE who came and evaluated patient will follow up with patient next week. Dr. Bruce thinks that her symptoms is due to a corpus luteum cyst vice ectopic . She is instructed to return emergency room for any worsening symptoms follow-up with OBGYN as directed. <Natasha Arcelia, DO - Last Filed: 07/29/18 04:13> Lab Data Lab Results 07/28/18 07/28/18 Range/Units 17:40 17:40 WBC 9.3 (4.5-11.0) X10^3/uL RBC 3.97 L (4.0-5.2) X10^6/uL Hgb 12.0 (12.0-16.0) g/dL Hct 36.0 (36-46) % MCV 90.6 (80-100) fL MCH 30.3 (26-34) PG MCHC 33.4 (30-36) % RDW 13.9 (11.6-14.8) % Plt Count 254 (150-400) X10^3/uL Neut % (Auto) 59.2 (50-75) % Lymph % (Auto) 31.8 (25-40) % [place] % (Auto) 4.4 (3-14) % Eos % (Auto) 3.4 (2-4) % Baso % (Auto) 1.2 (0-2) % Neut # (Auto) 5500 (0607-1744) /uL Sodium 142 (137-145) mmol/L Potassium 4.0 (3.4-5.1) mmol/L Chloride 103 (98-107) mmol/L Carbon Dioxide 26 (22-32) mmol/L BUN 17 (7-17) mg/dL Creatinine 0.60 (0.52-1.04) mg/dL Estimated GFR > 60.0 (>60) mL/min BUN/Creatinine Ratio 28.3 H (6-22) Glucose 81 (70-100) mg/dL Calcium 9.6 (8.4-10.2) mg/dL Total Bilirubin 0.2 (0.2-1.3) mg/dL AST 22 (14-36) IU/L ALT 18 (9-52) IU/L Alkaline Phosphatase 51 (38-126) U/L Total Protein 8.0 (6.3-8.2) g/dL Albumin 4.5 (3.5-5.0) g/dL Globulin 3.5 (1.7-4.1) g/dL Albumin/Globulin Ratio 1.3 (1.0-2.8) HCG, Quant 193.46 mIU/mL Urine Dip Bedside Urine Glucose Negative Bedside Urine Bilirubin - Negative Bedside Urine Ketone - Negative Urine Specific [place] 1.020 Bedside Urine Occult Blood + Bedside Urine pH 7.0 Bedside Urine Protein - Negative Bedside Urine Urobilinogen - Negative Bedside Urine Nitrite - Negative Bedside Urine Leukocytes - Negative Esterase Discharge Plan Departure Patient Disposition: Home Clinical Impression: Corpus luteum cyst, Spontaneous Discharge Date/Time: 07/28/18 19:53 Interventions: ED Discharge Assessment Last Done: 07/28/18 19:49 Instructions: DI for Ovarian Cyst Activity Restrictions/Additional Instructions: Laboratory results today show a decrease in HCG indicating that is no longer viable. Ultrasound findings consistent with ovarian cyst to the left ovary area. OBGYN seen you in the emergency room today and will follow up with you next week. Follow up with them as scheduled. Use pain medications as prescribed for discomfort. For any worsening symptoms return to the emergency room. Prescriptions: New oxycodone 5 mg tablet 5 mg PO Q4-6H PRN (Reason: pain) Qty: 20 RF: 0 Discontinued amoxicillin 500 mg capsule 1 cap PO BID RF: 0 Referrals: Jakob Bruce MD [Physician] - Jose Luis Win MD [Non-Staff] - 08/04/18 12:00 am Stand Alone Forms: Work Release Note <Natasha Paniagua DO - Last Filed: 07/29/18 04:13> Cosign ED Attending Qamarature Attestation: I was immediately available in the department for consultation. Documentation has been reviewed. I agree with assessment and plan.
--- NOTE | 2018-07-28 19:19 | P.HPOB_ITS ---
History of Present Illness Reason for admission: vaginal bleeding and pelvic mass Narrative: Jesus Junior is a 32 year old female of ancestry who presents with left lower quadrant pain and a complex menstrual history. This patient had a normal. On the 09 of June and then had unprotected intercourse on the 16 of June and took Plan B. patient began bleeding on the or 12 of July with some left lower quadrant pain. She was seen in the clinic in [place] in her urine test was positive and a quantitative HCG was approximately 190. On the 20 sec she presented to the emergency room here with the same findings and had a quantitative HCG of 250. The patient was scheduled to be seen in a clinic but was not seen and is back in the emergency room and [facility] with the same symptomatology. [facility] Medical History Chronic hepatitis B (Acute) Social History Smoking Status: Never smoker Meds Home Medications Medication Instructions Recorded Confirmed Type amoxicillin 1 cap PO BID 07/22/18 07/28/18 History Allergies Allergy/AdvReac Type Severity Reaction Status Date / Time No Known Drug Allergies Allergy Verified 07/22/18 09:50 Exam Vital Signs (past 8 hours): - 07/28/18 15:45 07/28/18 17:07 Temperature 97.8 F Pulse Rate 85 81 Respiratory Rate 20 16 Blood Pressure 111/70 Blood Pressure [Right Arm] 96/61 Pulse Oximetry 97 100 Oxygen Delivery Method Room Air Narrative Exam Narrative: The patient is a well-nourished female appearing her stated age. Examination today is confined to her abdomen the abdomen is scaphoid and only minimally tender in left lower quadrant. There is no distention. There adequate bowel sounds which are not hyperactive. Pelvic exam was deferred. Objective Labs Result Diagrams: 07/28/18 17:40 07/28/18 17:40 Labs: Laboratory Results - last 24 hr 07/28/18 07/28/18 17:40 17:40 WBC 9.3 RBC 3.97 L Hgb 12.0 Hct 36.0 MCV 90.6 MCH 30.3 MCHC 33.4 RDW 13.9 Plt Count 254 Neut % (Auto) 59.2 Lymph % (Auto) 31.8 [place] % (Auto) 4.4 Eos % (Auto) 3.4 Baso % (Auto) 1.2 Neut # (Auto) 5500 Sodium 142 Potassium 4.0 Chloride 103 Carbon Dioxide 26 BUN 17 Creatinine 0.60 Estimated GFR > 60.0 BUN/Creatinine Ratio 28.3 H Glucose 81 Calcium 9.6 Total Bilirubin 0.2 AST 22 ALT 18 Alkaline Phosphatase 51 Total Protein 8.0 Albumin 4.5 Globulin 3.5 Albumin/Globulin Ratio 1.3 HCG, Quant 193.46 Assessment & Plan Plan: Assessment/Plan Narrative: Patient presenting with persistence of left lower quadrant pain and a mass. I have reviewed the ultrasound with the radiologist one of whom felt that there was a yolk sac in the ovary which I find to be a stretch. She certainly has a mass on the left-hand side which is compatible with a corpus luteum cyst showed no color Doppler was done. There is some free fluid in the pelvis. Her hematocrit is stable at 36 and her quantitative HCG has fallen from 250-193. It is uncertain whether this is really an ectopic more likely a corpus luteum cyst and modified by Plan B which was taken on the 16 of June. The quantitative HCG is decreasing and I see no need to laparoscopic this patient at this time. Our plan therefore is to have her follow-up visit next week in the clinic with quantitative HCG. We will give her some pain pills to take home with her and have her stay at rest.
[2018-07-28] MEDS: OXYCODONE/ACETAMINOPHEN 5/325 TABLET 1 TAB PO (19:31)
[2018-07-28 19:41] VITALS: BP 105/81; PULSE 83; RESP 17; O2SAT 99
--- NOTE | 2018-07-28 20:11 | PM.GYNOP.1 ---
Operative Date/Time/Diagnoses Date of procedure: 07/28/18 Time of procedure: 20:11 Pre-op diagnosis: Incomplete Post-op diagnosis: same Procedure: Curettage Indications: Retained products of conception Surgeon: Jakob Bruce Anesthesia Type: General Operative Notes Closure Type: not applicable Specimen(s): endometrial curettings Estimated blood loss (mL): 25 Blood products transfused: none Procedure in detail: Patient was placed supine upon the operating table anesthetized. She was then placed in the dorsal lithotomy position examined under anesthesia. Under anesthesia she was felt to have an eight week size uterus. The patient was then draped. Usual fashion. Posterior weighted retractor was then placed the anterior of the cervix grasped with tooth tenaculum. Placental tissue was in the cervical os and removed with a ring forceps intact without difficulty. Gentle curettage remaining portions of the endometrial cavity revealed no remaining tissue. Complications: none Post-operative Condition: stable Disposition: PACU Plan for aftercare: Discharged home
== END 2018-07-28 19:53 | disposition home or self-care (01) ==
PROVIDERS: Emergency Provider Nurse Practitioner Family
DX: N83.10 Corpus luteum cyst of ovary, unspecified side (principal); O03.9 Complete or unspecified spontaneous abortion without complication
CPT/HCPCS: 36415; 76830; 76856; 80053; 81003; 84702; 85025; 99283; 99284

== ENCOUNTER → 2019-03-01 08:23 | Outpatient (CLI) | payer OTHER, SELFPAY ==
--- NOTE | 2019-03-01 08:26 | DI.RAD.S_ITS ---
PROCEDURE: XR HAND RT MIN 3V INDICATIONS: crush injury TECHNIQUE: 3 views of the hand(s) acquired. COMPARISON: None. FINDINGS: Bones: No fractures or dislocations. Carpal bones are normally aligned. No suspicious bony lesions. Soft tissues: No suspicious soft tissue calcifications. IMPRESSION: Right hand without acute radiographic abnormalities. If there is persistent clinical concern for occult fracture given adequate mechanism of injury, consider repeat imaging in 10-14 days. Dictated by: Ivan Wing M.D. on 03/01/2019 at 8:42 Approved by: Ivan Wing M.D. on 03/01/2019 at 8:43
== END ==
PROVIDERS: Visit Provider Physician Assistant
DX: Z02.83 Encounter for blood-alcohol and blood-drug test (principal); M79.641 Pain in right hand; S67.21XA Crushing injury of right hand, initial encounter; S60.221A Contusion of right hand, initial encounter; X58.XXXA Exposure to other specified factors, initial encounter
CPT/HCPCS: 73130; 80307

== ENCOUNTER → 2019-03-01 09:12 | Outpatient (CLI) | payer OTHER, SELFPAY | PROVIDERS: Visit Provider Physician Assistant | DX: Z02.83 Encounter for blood-alcohol and blood-drug test (principal); S60.221A Contusion of right hand, initial encounter ==

== ENCOUNTER → 2019-09-06 14:13 | Outpatient (CLI) | payer OTHER, SELFPAY ==
[2019-09-06 14:21] LABS: Bacteria Urine None Seen; RBC Urine None Seen (0-5/HPF); WBC Urine None Seen (0-5/HPF)
[2019-09-06 15:36] LABS: Appearance Urine UA CLEAR; Bilirubin Urine UA NEGATIVE (NEGATIVE); Color Urine UA YELLOW; Glucose Urine UA NEGATIVE (Negative); Ketones Urine UA NEGATIVE (NEGATIVE); Leukocyte Esterase Urine UA NEGATIVE (NEGATIVE); Nitrite Urine UA NEGATIVE (Negative); Occult Blood Urine UA TRACE-INTACT (Negative); Protein Urine UA NEGATIVE (Negative); Specific Gravity Urine UA 1.025 (1.000-1.035); Urobilinogen Urine UA 0.2 E.U./dL (0.2)
[2019-09-06 15:40] LABS: pH Urine UA 5.5 (4.5-8.0)
[2019-09-06 15:43] LABS: Culture Indicated Urine Cult Not Indicated; Urine Comments Microscopic Normal
[2019-09-06 15:45] LABS: Add Manual Diff / Slide Review NO; Basophils Absolute Auto 100 /uL (0-100); Eosinophils Absolute Auto 100 /uL (0-450); Eosinophils Percent Auto 1.9 % (2-4); Hematocrit 40.6 % (36-46); Hemoglobin 13.7 g/dL (12.0-16.0); Lymphocytes Absolute Auto 2100 /uL (1100-4500); Lymphocytes Percent Auto 29.3 % (25-40); Mean Corpuscular HGB Conc 33.7 % (30-36); Mean Corpuscular Hemoglobin 30.5 PG (26-34); Mean Corpuscular Volume 90.4 fL (80-100); Monocytes Absolute Auto 300 /uL (0-900); Monocytes Percent Auto 4.4 % (3-14); Neutrophils Absolute Auto 4500 /uL (1500-7000); Neutrophils Percent Auto 63.4 % (50-75); Platelet Count 180 X10^3/uL (150-400); Red Blood Cell Count 4.49 X10^6/uL (4.0-5.2); White Blood Cell Count 7.1 X10^3/uL (4.5-11.0)
[2019-09-06 15:53] LABS: Alanine Aminotransferase 16 IU/L (<35); Albumin 4.7 g/dL (3.5-5.0); Albumin Globulin Ratio 1.2 (1.0-2.8); Alkaline Phosphatase 59 U/L (38-126); Amylase 89 U/L (30-110); Aspartate Aminotransferase 29 IU/L (14-36); Bilirubin Total 0.3 mg/dL (0.2-1.3); Blood Urea Nitrogen 12 mg/dL (7-17); Calcium 9.4 mg/dL (8.4-10.2); Carbon Dioxide 27 mmol/L (22-32); Chloride 101 mmol/L (98-107); Estimated Glomerular Filt Rate > 60.0 mL/min (>60); Globulin 3.8 g/dL (1.7-4.1); Glucose 76 mg/dL (70-100); HEMOLYSIS < 15 (0-50); Lipase 107 U/L (23-300); Potassium 3.8 mmol/L (3.4-5.1); Sodium 138 mmol/L (137-145); Total Protein 8.5 g/dL (6.3-8.2)
== END ==
PROVIDERS: PCP Nurse Practitioner Family; Referring Provider Nurse Practitioner Family; Visit Provider Nurse Practitioner Family
DX: R10.9 Unspecified abdominal pain (principal)
CPT/HCPCS: 36415; 80053; 81001; 82150; 83690; 85025

== ENCOUNTER → 2019-09-07 08:06 | Outpatient (CLI) | payer OTHER, SELFPAY ==
--- NOTE | 2019-09-07 08:07 | DI.US.S_ITS ---
PROCEDURE: US ABDOMEN COMPLETE INDICATIONS: RIGHT AND LEFT UPPER QUADRANT PAIN TECHNIQUE: Real-time scanning was performed of the abdominal and retroperitoneal organs, with image documentation. COMPARISON: None. FINDINGS: Liver: Liver is normal in size and homogeneous in echotexture. Gallbladder: No findings of gallstones or sludge are seen. The gallbladder wall is not thickened, measuring 3 mm or less. No specific pericholecystic fluid is seen. The sonographic Wong sign is negative. Biliary ducts: Intrahepatic bile ducts are non-dilated. Extrahepatic bile duct caliber measures 3 mm. Normal is 6-7 mm or less in diameter, or 10 mm or less post-cholecystectomy. Pancreas: Visualized portions of the pancreas are sonographically normal. Spleen: Spleen is normal in size and homogeneous in echotexture. Kidneys: Kidneys are normal in size and echotexture. Right kidney measures 8.5 cm long; left kidney measures 9.8 cm long. No hydronephrosis or nephrolithiasis. No solid masses. Aorta: Visualized aorta is normal in caliber at less than 3 cm. Iliacs: Proximal common iliac arteries are normal in caliber at less than 2.5 cm. IVC: Intrahepatic inferior vena cava is patent. Miscellaneous: No free abdominal fluid. IMPRESSION: The gallbladder demonstrates a normal sonographic appearance. No biliary dilatation is seen. Dictated by: Jorge Gill M.D. on 09/07/2019 at 9:18 Approved by: Jorge Gill M.D. on 09/07/2019 at 9:19
== END ==
PROVIDERS: PCP Nurse Practitioner Family; Referring Provider Nurse Practitioner Family; Visit Provider Nurse Practitioner Family
DX: R10.11 Right upper quadrant pain (principal); R10.12 Left upper quadrant pain
CPT/HCPCS: 76700

== ENCOUNTER → 2019-09-13 14:51 | Outpatient (CLI) | payer OTHER, SELFPAY ==
[2019-09-13 17:06] LABS: TSH w/ Reflex to FT4 1.97 uIU/mL (0.47-4.68)
== END ==
PROVIDERS: PCP Nurse Practitioner Family; Referring Provider Nurse Practitioner Family; Visit Provider Nurse Practitioner Family
DX: R10.84 Generalized abdominal pain (principal); R63.4 Abnormal weight loss
CPT/HCPCS: 36415; 84443

== ENCOUNTER → 2019-09-22 09:26 | Outpatient (CLI) | payer OTHER, SELFPAY ==
[2019-09-22 09:42] LABS: Bacteria Urine None Seen; RBC Urine None Seen (0-5/HPF); WBC Urine None Seen (0-5/HPF)
[2019-09-22 10:37] LABS: Appearance Urine UA CLEAR; Bilirubin Urine UA NEGATIVE (NEGATIVE); Color Urine UA YELLOW; Glucose Urine UA NEGATIVE (Negative); Ketones Urine UA NEGATIVE (NEGATIVE); Leukocyte Esterase Urine UA NEGATIVE (NEGATIVE); Nitrite Urine UA NEGATIVE (Negative); Occult Blood Urine UA NEGATIVE (Negative); Protein Urine UA NEGATIVE (Negative); Specific Gravity Urine UA 1.025 (1.000-1.035); Urobilinogen Urine UA 0.2 E.U./dL (0.2)
[2019-09-22 10:41] LABS: pH Urine UA 6.5 (4.5-8.0)
[2019-09-22 10:53] LABS: Culture Indicated Urine Cult Not Indicated; Squamous Epithelial Cell Urine 5-10 /HPF (0-5/HPF)
== END ==
PROVIDERS: PCP Nurse Practitioner Family; Referring Provider Nurse Practitioner Family; Visit Provider Nurse Practitioner Family
DX: R31.9 Hematuria, unspecified (principal)
CPT/HCPCS: 81001

== ENCOUNTER → 2020-04-04 09:42 | Outpatient (CLI) | payer OTHER, SELFPAY | PROVIDERS: PCP Nurse Practitioner Family; Visit Provider Nurse Practitioner Family | DX: N89.8 Other specified noninflammatory disorders of vagina (principal) | CPT/HCPCS: 87210 ==

== ENCOUNTER → 2020-05-29 11:44 | Outpatient (CLI) | payer OTHER, SELFPAY | PROVIDERS: PCP Nurse Practitioner Family; Visit Provider Physician Assistant | DX: R30.0 Dysuria (principal) | CPT/HCPCS: 87077; 87086; 87186 ==

== ENCOUNTER → 2020-07-13 15:51 | Outpatient (CLI) | payer OTHER, SELFPAY ==
--- NOTE | 2020-07-13 15:54 | DI.RAD.S_ITS ---
PROCEDURE: XR ELBOW LT MIN 3V INDICATIONS: L elbow pain post impact TECHNIQUE: 3 views of the elbow were acquired. COMPARISON: CR, ELBOW 3+ VIEWS LEFT, 06/18/2012, 14:37. FINDINGS: Bones: No fractures or dislocations. No suspicious bony lesions. Small exostosis at the lateral humeral condyle, unchanged. Soft tissues: No elbow joint effusion. No suspicious soft tissue calcifications. IMPRESSION: No fracture or dislocation. No joint effusion. Dictated by: Sami Sanders M.D. on 07/13/2020 at 15:41 Approved by: Sami Sanders M.D. on 07/13/2020 at 15:43
== END ==
PROVIDERS: PCP Nurse Practitioner Family; Referring Provider Nurse Practitioner; Visit Provider Nurse Practitioner
DX: M25.522 Pain in left elbow (principal)
CPT/HCPCS: 73080

== ENCOUNTER → 2020-11-28 10:02 | Outpatient (CLI) | payer OTHER, SELFPAY ==
[2020-11-28] MEDS: COVID-19 VACC #1, MRNA(MOD) 100 MCG/0.5 ML VIAL IM (10:13)
== END ==
PROVIDERS: PCP Nurse Practitioner Family; Visit Provider Internal Medicine
DX: Z23 Encounter for immunization (principal)
CPT/HCPCS: 0011A; 91301

== ENCOUNTER → 2021-01-09 08:53 | Outpatient (CLI) | payer OTHER, SELFPAY ==
[2021-01-09] MEDS: COVID-19 VACC #2, MRNA(MOD) 100 MCG/0.5 ML VIAL IM (08:57)
== END ==
PROVIDERS: PCP Nurse Practitioner Family; Visit Provider Internal Medicine
DX: Z23 Encounter for immunization (principal)
CPT/HCPCS: 0012A; 91301

== ENCOUNTER → 2021-08-03 18:26 | Outpatient (CLI) | payer OTHER, SELFPAY | PROVIDERS: PCP Nurse Practitioner Family; Referring Provider Physician Assistant; Visit Provider Physician Assistant | DX: B96.89 Other specified bacterial agents as the cause of diseases classified elsewhere (principal); N39.0 Urinary tract infection, site not specified; N76.0 Acute vaginitis | CPT/HCPCS: 87086; 87210 ==

== ENCOUNTER 2021-11-15 21:38 | Emergency (ER) | payer OTHER, SELFPAY ==
[2021-11-15 21:43] VITALS: BP 127/79; PULSE 81; RESP 20; TEMP 36.7; O2SAT 97
[2021-11-15] MEDS: EPINEPHrine 1 MG/ML 0.5 MG IM (21:54)
[2021-11-15] MEDS: diphenhydrAMINE 50 MG/ML VIAL 25 MG IV (21:57)
[2021-11-15] MEDS: methylPREDNISolone 125 MG/2 ML VIAL IV (22:01)
[2021-11-15] MEDS: FAMOTIDINE 20 MG/2 ML VIAL IV (22:01)
[2021-11-15 22:02] VITALS: BP 189/94; PULSE 85; RESP 21; O2SAT 100
[2021-11-15 22:30] VITALS: BP 128/77; PULSE 100; O2SAT 100
--- NOTE | 2021-11-15 22:31 | ED_ITS ---
HPI - Allergic Reaction General Chief complaint: Allergic Reaction Stated complaint: Allergic reaction to crab Time Seen by Provider: 11/15/21 21:47 Source: patient Mode of arrival: Ambulatory History of Present Illness HPI narrative: 35-year-old female nonsmoker with history of prior allergic reactions presents for evaluation of facial swelling and itching as well as throat fullness that seemed to start soon after eating shrimp. She states she thinks she may have had a reaction to stream for. She took no medications prior to her arrival. She denies any chest pain or shortness of breath. She has no difficulty swallowing, she denies abdominal pain, vomiting or diarrhea. Related Data Previous Rx's Medication Instructions Recorded econazole 1 % topical cream 1 applictn TOP BID #30 gram 04/04/20 cyclobenzaprine 10 mg tablet 10 mg PO BEDTIME #30 tab 11/06/21 norgestimate-ethinyl estradiol 1 tab PO DAILY #84 tab 11/06/21 0.18 mg/0.215mg/0.25mg-35 mcg(28)tablet (Tri-Sprintec (28)) sumatriptan succinate 50 mg tablet See Rx Instructions PO .COMPLEX 11/06/21 #20 tab epinephrine 0.3 mg/0.3 mL 0.3 mg (0.3 mL) IM Q5-15M PRN #2 ea 11/16/21 injection, auto-injector (EpiPen 2-Gerald) prednisone 20 mg tablet 20 mg PO DAILY #5 tab 11/16/21 prednisone 20 mg tablet 40 mg PO DAILY 5 Days tab 11/16/21 Allergies Allergy/AdvReac Type Severity Reaction Status Date / Time shrimp Allergy Intermediate Anaphylaxis Verified 11/15/21 22:27 Review of Systems Review of Systems Narrative: GENERAL: Denies chills, fatigue, malaise, fever, sweats. HEENT: See HPI RESPIRATORY: See HPI CARDIOVASCULAR: Denies chest pain, palpitations, orthopnea, edema, GASTROINTESTINAL: Denies nausea, vomiting, abdominal pain, diarrhea, constipation, melena. : Denies dysuria, frequency, incontinence, hematuria, urinary retention. MUSCULOSKELETAL: denies weakness, joint pain, or bony pain SKIN: Denies rash, skin lesions, or other NEUROLOGIC: Denies weakness, headache, numbness, change in speech, confusion, seizures, incoordination. PSYCHIATRIC: No concerning psychosocial issues. 12 point review of systems is negative except for those stated above Patient History Medical History Bacterial vaginitis Chronic hepatitis B Encounter for routine gynecological examination Generalized abdominal pain Hearing loss History of developmental delay History of short term memory loss Irregular menstrual cycle Miscarriage (~2017) Pancreatitis (~2008) Tinea corporis Vertigo Social History Smoking Status: Never smoker Smoking Status: Never smoker alcohol intake frequency: 0-2 drinks per day Substance Use Type: does not use Exam Narrative Exam Narrative: GENERAL: [35] year old patient appears stated age. Well-developed patient, in mild distress. Anxious HEAD: Atraumatic. Normocephalic. EYES: Pupils equal round and reactive. Extraocular motions intact. No scleral icterus. No injection or drainage. ENT: Minimal right lateral, lower lip swelling, no tongue or pharyngeal involvements, no facial swelling Nose without bleeding, purulent drainage. Throat without erythema, tonsillar hypertrophy or exudate. Airway patent. NECK: Trachea midline. Non tender CARDIOVASCULAR: Regular rate and rhythm without murmurs, gallops, or rubs. RESPIRATORY: Clear to auscultation. Breath sounds equal bilaterally. No wheezes, rales, or rhonchi. GASTROINTESTINAL: Abdomen soft, non-tender, nondistended. EXTREMITIES: No edema or joint tenderness. BACK: Nontender without deformity or crepitance. No flank tenderness. NEURO: AOx3. SKIN: No rash or erythema of visible areas Initial Vital Signs Initial Vital Signs: Vital Signs Temperature 98.0 F 11/15/21 21:43 Pulse Rate 81 11/15/21 21:43 Respiratory Rate 20 11/15/21 21:43 Blood Pressure 127/79 11/15/21 21:43 Pulse Oximetry 97 11/15/21 21:43 Course Orders Ordered: Discontinued Medications Diphenhydramine HCl (Diphenhydramine 50 Mg/Ml Vial) 25 mg IV NOW ONE Stop: 11/15/21 21:48 Last Admin: 11/15/21 21:57 Dose: 25 mg Documented by: JAEL Epinephrine HCl (Epinephrine 1 Mg/Ml) 0.5 mg IM NOW ONE Stop: 11/15/21 21:48 Last Admin: 11/15/21 21:54 Dose: 0.5 mg Documented by: JAEL Famotidine (Famotidine 20 Mg/2 Ml Vial) 20 mg IV NOW ONE Stop: 11/15/21 21:48 Last Admin: 11/15/21 22:01 Dose: 20 mg Documented by: JAEL Sodium Chloride (Normal Saline 0.9%) 1,000 mls @ 1,000 mls/hr IV BOLUS ONE Stop: 11/16/21 01:01 Last Admin: 11/16/21 00:14 Dose: 1,000 mls/hr Documented by: EDMUNDO Methylprednisolone (Methylprednisolone 125 Mg/2 Ml Vial) 125 mg IV NOW ONE Stop: 11/15/21 21:48 Last Admin: 11/15/21 22:01 Dose: 125 mg Documented by: JAEL Reevaluation(s) Reevaluation #1: Significant improvement after above-stated therapies Reevaluation #2: Patient continues to be asymptomatic Time: 01:12 Vital Signs Vital signs: Vital Signs - 8 hr 11/15/21 21:43 11/15/21 22:02 11/15/21 22:30 Temperature 98.0 F Pulse Rate 81 85 100 H Respiratory Rate 20 21 Blood Pressure 127/79 189/94 H 128/77 Pulse Oximetry 97 100 100 11/15/21 23:00 11/15/21 23:30 11/16/21 00:00 Temperature Pulse Rate 88 85 79 Respiratory Rate 21 17 Blood Pressure 95/56 L 91/53 L 83/50 L Pulse Oximetry 100 100 99 11/16/21 00:01 11/16/21 00:02 11/16/21 00:30 Temperature Pulse Rate 103 H 92 H 89 Respiratory Rate 24 24 Blood Pressure 88/53 L 87/52 L 107/72 Pulse Oximetry 100 100 100 11/16/21 01:00 Temperature Pulse Rate 88 Respiratory Rate 19 Blood Pressure 105/67 Pulse Oximetry 100 MDM - Allergic Reaction MDM Narrative Medical decision making narrative: Patient with localizes allergic type symptoms after exposure to shrimp. She has complete resolution of symptoms after above-stated therapies, she is observed for 3-1/2 hours. Extensive return precautions discussed. Discharge Plan Departure Patient Disposition: Home Clinical Impression: Allergic reaction Instructions: Anaphylaxis Activity Restrictions/Additional Instructions: *You have been diagnosed with [allergic reaction] *What to do: *Please continue to take your regular medications as directed. [ x] New medication prescriptions sent to your pharmacy: [ [facility]] [ ] New medication written as a paper prescription [ ] No new medications given *Please consider the routine use of over the counter antihistamines over the next few days 1. H1 blockers: Benadryl (Diphenhydramine), Zyrtec (Cetirizine), Hanna (Fexofenadine) or Claritin (Loratadine) along with, 2. H2 blockers: Famotidine or Cimetidine *If you can please avoid what triggered your reaction today *Please follow up with your primary care provider in 2-3 days, call for an appointment. Let them know you were seen in the Emergency Department and that we ask that you be seen in follow up. We will electronically transmit a record of today's note if your PCP is in our system *If you do not have a primary care provider please contact the [facility] Resource line at [phone]. They will ask some questions about your medical history and help get you set up with a doctor in the community. *Return to Emergency Department if you should have any new, worsening or concerning symptoms, such as swelling of tongue, throat, trouble breathing, or other concerning symptoms Prescriptions: New prednisone 20 mg tablet 40 mg PO DAILY 5 Days 0RF epinephrine [EpiPen 2-Gerald] 0.3 mg/0.3 mL auto-injector 0.3 mg IM Q5-15M PRN (Reason: anaphylaxis) Qty: 2 0RF Rx Instructions: do not exceed 3 doses per episode prednisone 20 mg tablet 20 mg PO DAILY Qty: 5 0RF Rx Instructions: administer with food or milk No Action econazole 1 % cream 1 applictn TOP BID Qty: 30 0RF cyclobenzaprine 10 mg tablet 10 mg PO BEDTIME Qty: 30 1RF sumatriptan succinate 50 mg tablet See Rx Instructions PO .COMPLEX Qty: 20 1RF Rx Instructions: take 1 tab at onset of headache; if no relief may repeat 1 tab after at least 2 hrs; max = 4 tabs/24 hr PO norgestimate-ethinyl estradiol [Tri-Sprintec (28)] 0.18/0.215/0.25 mg-35 mcg (28) tablet 1 tab PO DAILY Qty: 84 3RF Referrals: Hilton Lyman ARNP [Primary Care Provider] -
[2021-11-15 23:00] VITALS: BP 95/56; PULSE 88; O2SAT 100
[2021-11-15 23:30] VITALS: BP 91/53; PULSE 85; RESP 21; O2SAT 100
[2021-11-16] VITALS: BP 83/50; PULSE 79; RESP 17; O2SAT 99
[2021-11-16 00:01] VITALS: BP 88/53; PULSE 103; RESP 24; O2SAT 100
[2021-11-16 00:02] VITALS: BP 87/52; PULSE 92; RESP 24; O2SAT 100
[2021-11-16] MEDS: SODIUM CHLORIDE 0.9% 1,000 ML 1000 ML IV (00:14)
[2021-11-16 00:30] VITALS: BP 107/72; PULSE 89; O2SAT 100
[2021-11-16 01:00] VITALS: BP 105/67; PULSE 88; RESP 19; O2SAT 100
== END 2021-11-16 02:02 | disposition home or self-care (01) ==
PROVIDERS: Emergency Provider Emergency Medicine; PCP Nurse Practitioner Family
DX: T78.1XXA Other adverse food reactions, not elsewhere classified, initial encounter (principal)
CPT/HCPCS: 36415; 96372; 96374; 96375; 99284; J0171; J1200; J2930

== ENCOUNTER → 2022-03-26 12:26 | Outpatient (CLI) | payer OTHER, SELFPAY | PROVIDERS: PCP Family Medicine; Visit Provider Nurse Practitioner Family | DX: R30.0 Dysuria (principal) | CPT/HCPCS: 87086 ==

== ENCOUNTER → 2022-04-02 09:02 | Outpatient (CLI) | payer OTHER, SELFPAY ==
--- NOTE | 2022-04-02 09:03 | DI.US.S_ITS ---
PROCEDURE: US ABDOMEN COMPLETE INDICATIONS: MID/LEFT UPPER QUADRANT PAIN TECHNIQUE: Real-time scanning was performed of the abdominal and retroperitoneal organs, with image documentation. COMPARISON: [facility], US, US ABDOMEN COMPLETE, 09/07/2019, 8:22. FINDINGS: Liver: Liver is normal in size and homogeneous in echotexture. On the right, there is an echogenic nonshadowing nonvascular focus that measures 15 x 16 x 17 mm. Gallbladder: No findings of gallstones or sludge are seen. The gallbladder wall is not thickened, measuring 3 mm or less. No specific pericholecystic fluid is seen. The sonographic Wong sign is negative. Biliary ducts: Potentially prominent intrahepatic ducts can be seen on the left. Extrahepatic bile duct caliber measures 9 mm. Normal is 6-7 mm or less in diameter, or 10 mm or less post-cholecystectomy. Pancreas: Visualized portions of the pancreas are sonographically normal. Spleen: Spleen is normal in size and homogeneous in echotexture. Kidneys: Kidneys are normal in size and echotexture. Right kidney measures 9 cm long; left kidney measures 9.4 cm long. No hydronephrosis or nephrolithiasis. No solid masses. At the superior aspect of the right kidney, there is a 5 mm apparent cyst seen. Aorta: Visualized aorta is normal in caliber at less than 3 cm. Iliacs: Proximal common iliac arteries are normal in caliber at less than 2.5 cm. IVC: Intrahepatic inferior vena cava is patent. Miscellaneous: No free abdominal fluid. At the area of left lower quadrant pain, bowel can be seen, without a focal abnormality. IMPRESSION: Mild biliary ductal dilatation is seen. If clinically appropriate, an MRCP could be considered for further evaluation (assuming that there is no contraindication to MRI). Normal appearing gallbladder. Presumed liver hemangioma. Likely 5 mm right renal cyst. Dictated by: Jorge Gill M.D. on 04/02/2022 at 9:38 Approved by: Jorge Gill M.D. on 04/02/2022 at 9:42
== END ==
PROVIDERS: PCP Family Medicine; Referring Provider Nurse Practitioner Family; Visit Provider Nurse Practitioner Family
DX: R10.10 Upper abdominal pain, unspecified (principal)
CPT/HCPCS: 76700

== ENCOUNTER 2023-01-13 15:19 | Emergency (ER) | payer OTHER, SELFPAY ==
[2023-01-13] VITALS (13 sets, daily range): BP systolic 101–117; BP diastolic 62–75; PULSE 66–86; RESP 17–24; TEMP 36.9; O2SAT 99–100; BMI 19.3
--- NOTE | 2023-01-13 16:06 | PC.NURSE ---
Patient reports having similar episodes in the past of chest pain, but states it was never this intense.
--- NOTE | 2023-01-13 16:16 | DI.RAD.S_ITS ---
PROCEDURE: XR CHEST 1V INDICATIONS: chest pain TECHNIQUE: One view of the chest was acquired. COMPARISON: None. FINDINGS: Surgical changes and devices: None. Lungs and pleura: Rounded opacity is noted in the lateral aspect of the lungs bases likely nipple shadows. Mediastinum: Mediastinal contours appear normal. Heart size is normal. Bones and chest wall: No suspicious bony lesions. Overlying soft tissues appear unremarkable. IMPRESSION: No effusions or consolidations. Dictated by: Viridiana Barillas M.D. on 01/13/2023 at 16:56 Approved by: Viridiana Barillas M.D. on 01/13/2023 at 16:56
[2023-01-13 16:26] LABS: Add Manual Diff / Slide Review NO; Basophils Absolute Auto 100 /uL (0-100); Basophils Percent Auto 1.1 % (0-2); Eosinophils Absolute Auto 300 /uL (0-450); Eosinophils Percent Auto 3.9 % (2-4); Hematocrit 39.4 % (36-46); Hemoglobin 13.4 g/dL (12.0-16.0); Lymphocytes Absolute Auto 2200 /uL (1100-4500); Lymphocytes Percent Auto 31.1 % (25-40); Mean Corpuscular Hemoglobin 30.5 PG (26-34); Mean Corpuscular Volume 89.7 fL (80-100); Monocytes Absolute Auto 400 /uL (0-900); Monocytes Percent Auto 5.1 % (3-14); Neutrophils Absolute Auto 4100 /uL (1500-7000); Neutrophils Percent Auto 58.8 % (50-75); Platelet Count 196 X10^3/uL (150-400); Prothrombin Time 11.7 SECONDS (10.1-12.7); Red Blood Cell Count 4.39 X10^6/uL (4.0-5.2); Red Cell Distribution Width 13.5 % (11.6-14.8)
[2023-01-13 16:28] LABS: PTT Partial Thromboplastin Tim 33 SECONDS (26-36)
[2023-01-13 16:32] LABS: Alanine Aminotransferase 13 IU/L (<35); Albumin 4.4 g/dL (3.5-5.0); Albumin Globulin Ratio 1.2 (1.0-2.8); Alkaline Phosphatase 51 U/L (38-126); Aspartate Aminotransferase 22 IU/L (14-36); BUN Creatinine Ratio 21.5 (6-22); Bilirubin Total 0.3 mg/dL (0.2-1.3); Blood Urea Nitrogen 14 mg/dL (7-17); Calcium 8.8 mg/dL (8.4-10.2); Carbon Dioxide 26 mmol/L (22-32); Chloride 105 mmol/L (98-107); Creatine Kinase 87 U/L (30-135); Estimated Glomerular Filt Rate > 60 mL/min (>60); Globulin 3.6 g/dL (1.7-4.1); Glucose 89 mg/dL (70-100); HEMOLYSIS 16 (0-50); Lipase 158 U/L (23-300); Magnesium 1.9 mg/dL (1.6-2.3); Potassium 3.9 mmol/L (3.4-5.1); Sodium 137 mmol/L (137-145)
[2023-01-13 16:37] LABS: D Dimer 315 ng/ml (<500)
[2023-01-13 16:44] LABS: Troponin I < 0.012 ng/mL (0.01-0.034)
[2023-01-13] MEDS: ASPIRIN 81 MG CHEW TAB 324 MG PO (16:52)
[2023-01-13 17:41] LABS: COVID19 -Nasal RAPID Negative (Negative)
[2023-01-13 18:34] LABS: Troponin I < 0.012 ng/mL (0.01-0.034)
--- NOTE | 2023-01-13 18:43 | ED_ITS ---
HPI - Chest Pain General Chief Complaint: Chest Pain Stated Complaint: Chest pain Time Seen by Provider: 01/13/23 15:45 Source: patient Mode of arrival: Wheelchair Limitations: no limitations History of Present Illness HPI narrative: Patient is a 37-year-old female. Her initial stated complaint was that she was having chest discomfort however upon further evaluation she states she is actually here because she is having chest pain and also having episodes of vertigo. This has been going on for the past week or so. She is not having any vision changes. Does have some fullness in her ears. The vertigo does seem to be somewhat positional specifically when she sits up. She is no shortness of breath. No tingling in her arms or legs. Has not tried anything for the symptoms prior to arrival. No fevers. Related Data Previous Rx's Medication Instructions Recorded econazole 1 % topical cream 1 applictn topical BID #30 grams 04/04/20 cyclobenzaprine 10 mg tablet 10 mg PO BEDTIME #30 tabs 11/06/21 norgestimate-ethinyl estradiol 1 tab PO DAILY #84 tabs 11/06/21 0.18 mg/0.215mg/0.25mg-35 mcg(28)tablet (Tri-Sprintec (28)) sumatriptan succinate 50 mg tablet See Rx Instructions PO .COMPLEX 11/06/21 #20 tabs prednisone 20 mg tablet 20 mg PO DAILY #5 tabs 11/16/21 epinephrine 0.3 mg/0.3 mL 0.3 mg (0.3 mL) IM Q5-15M PRN 12/04/21 injection, auto-injector (EpiPen anaphylaxis #2 ea 2-Gerald) meclizine 25 mg tablet 25 mg PO BID PRN dizziness #20 tabs 01/13/23 Allergies Allergy/AdvReac Type Severity Reaction Status Date / Time shrimp Allergy Intermediate Anaphylaxis Verified 11/15/21 22:27 Review of Systems Review of Systems ROS Unobtainable: All systems reviewed & are unremarkable except as noted in HPI and below Patient History Medical History Bacterial vaginitis Chronic hepatitis B Encounter for routine gynecological examination Generalized abdominal pain Hearing loss History of developmental delay History of short term memory loss Irregular menstrual cycle Miscarriage (~2017) Pancreatitis (~2008) Tinea corporis Vertigo Social History Smoking Status: Never smoker Smoking Status: Never smoker alcohol intake frequency: a few times a month Substance Use Type: does not use Exam Initial Vital Signs Initial Vital Signs: Vital Signs Pulse Rate 83 01/13/23 15:31 Respiratory Rate 24 01/13/23 15:31 Pulse Oximetry 99 01/13/23 15:31 Const General: cooperative, comfortable and No ill appearing HENMT Head: normal to inspection and normocephalic Ears: TM's normal bilaterally Face and sinus: normal facial exam Resp Effort & Inspection: normal respiratory effort Auscultation: clear to auscultation bilaterally Cardio Rate: regular rate Rhythm: regular rhythm Skin General: no rashes or lesions noted Neuro General: patient alert, patient awake and moves all extremities Cranial Nerves: CN's II-XI intact bilaterally Cognition: normal cognition Speech: speech normal Motor: muscle tone normal throughout Extrem General: normal to inspection and capillary refill normal Scores GCS Travis coma scale eye opening: Spontaneous [place] coma scale verbal response: Orientated [place] coma scale motor response: Obey commands [place] coma scale total score: 15 HEART Score Heart Score history: Slightly Suspicious Heart Score EKG: Normal Heart Score Age: < 45 years old Heart Score risk factors: No known risk factors Heart Score troponin: < or = to normal limit Heart Score Total: 0 Course Orders Ordered: ED Orders 01/13/23 15:38 Complete Blood Count AUTO DIFF Stat Comprehensive Metabolic Panel Stat DD [D Dimer] Stat Lipase Stat Magnesium Stat PTT Partial Thromboplastin Sanket Stat Prothrombin Time INR Stat Troponin & CK Cardiac Panel Stat 01/13/23 15:58 EKG-12 Lead Stat 01/13/23 16:16 XR chest 1V Stat 01/13/23 17:14 COVID19 -Nasal RAPID Stat 01/13/23 17:42 EKG-12 Lead Stat 01/13/23 17:45 Trop I [Troponin I] Stat Discontinued Medications Aspirin (Aspirin 81 Mg Chew Tab) 324 mg PO NOW ONE Stop: 01/13/23 16:17 Last Admin: 01/13/23 16:52 Dose: 324 mg Documented By: SPF Meclizine HCl (Meclizine Hcl 12.5 Mg Tablet) 25 mg PO NOW ONE Stop: 01/13/23 18:44 Last Admin: 01/13/23 18:50 Dose: 25 mg Documented By: TEGAN Vital Signs Vital signs: Vital Signs - 8 hr 01/13/23 15:46 01/13/23 15:46 01/13/23 15:31 Temperature 98.4 F Pulse Rate 73 83 Respiratory Rate 22 24 Blood Pressure 111/73 Pulse Oximetry 100 99 Oxygen Delivery Method Room Air 01/13/23 15:32 01/13/23 15:32 01/13/23 16:00 Temperature Pulse Rate 86 Respiratory Rate 17 Blood Pressure 111/73 117/72 Pulse Oximetry 100 Oxygen Delivery Method 01/13/23 16:00 01/13/23 16:30 01/13/23 16:30 Temperature Pulse Rate 77 71 Respiratory Rate 22 18 Blood Pressure 101/62 Pulse Oximetry 100 100 Oxygen Delivery Method 01/13/23 17:00 01/13/23 17:00 01/13/23 17:30 Temperature Pulse Rate 74 Respiratory Rate Blood Pressure 101/67 109/75 Pulse Oximetry 100 Oxygen Delivery Method Room Air 01/13/23 17:30 01/13/23 17:45 01/13/23 17:54 Temperature Pulse Rate 66 76 68 Respiratory Rate 17 18 Blood Pressure Pulse Oximetry 100 100 100 Oxygen Delivery Method 01/13/23 17:54 01/13/23 18:00 01/13/23 18:00 Temperature Pulse Rate 71 Respiratory Rate Blood Pressure 109/75 108/72 Pulse Oximetry 100 Oxygen Delivery Method 01/13/23 18:15 01/13/23 18:30 01/13/23 18:30 Temperature Pulse Rate 70 68 Respiratory Rate Blood Pressure 104/64 Pulse Oximetry 100 100 Oxygen Delivery Method Room Air 01/13/23 18:45 Temperature Pulse Rate 70 Respiratory Rate 24 Blood Pressure Pulse Oximetry 99 Oxygen Delivery Method Room Air MDM - Chest Pain Lab Data Attestation: I reviewed the patient's lab results. 01/13/23 15:38 01/13/23 15:38 Labs: Lab Results 01/13/23 01/13/23 01/13/23 Range/Units 15:38 15:38 15:38 WBC 7.0 (4.5-11.0) X10^3/uL RBC 4.39 (4.0-5.2) X10^6/uL Hgb 13.4 (12.0-16.0) g/dL Hct 39.4 (36-46) % MCV 89.7 (80-100) fL MCH 30.5 (26-34) PG MCHC 34.0 (30-36) % RDW 13.5 (11.6-14.8) % Plt Count 196 (150-400) X10^3/uL Neut % (Auto) 58.8 (50-75) % Lymph % (Auto) 31.1 (25-40) % [place] % (Auto) 5.1 (3-14) % Eos % (Auto) 3.9 (2-4) % Baso % (Auto) 1.1 (0-2) % Neut # (Auto) 4100 (0405-2761) /uL Lymph # (Auto) 2200 (5956-3024) /uL [place] # (Auto) 400 (0-900) /uL Eos # (Auto) 300 (0-450) /uL Baso # (Auto) 100 (0-100) /uL PT 11.7 (10.1-12.7) SECONDS INR 1.0 (0.9-1.3) APTT 33 (26-36) SECONDS D-Dimer (<500) ng/ml Sodium 137 (137-145) mmol/L Potassium 3.9 (3.4-5.1) mmol/L Chloride 105 (98-107) mmol/L Carbon Dioxide 26 (22-32) mmol/L BUN 14 (7-17) mg/dL Creatinine 0.65 (0.52-1.04) mg/dL Estimated GFR > 60 (>60) mL/min BUN/Creatinine Ratio 21.5 (6-22) Glucose 89 (70-100) mg/dL Calcium 8.8 (8.4-10.2) mg/dL Magnesium 1.9 (1.6-2.3) mg/dL Total Bilirubin 0.3 (0.2-1.3) mg/dL AST 22 (14-36) IU/L ALT 13 (<35) IU/L Alkaline Phosphatase 51 (38-126) U/L Total Creatine Kinase 87 (30-135) U/L CK-MB (CK-2) TNP CK-MB (CK-2) Rel Index TNP Troponin I < 0.012 (0.01-0.034) ng/mL Total Protein 8.0 (6.3-8.2) g/dL Albumin 4.4 (3.5-5.0) g/dL Globulin 3.6 (1.7-4.1) g/dL Albumin/Globulin Ratio 1.2 (1.0-2.8) Lipase 158 (23-300) U/L SARS-CoV-2 (PCR) (Negative) 01/13/23 01/13/23 01/13/23 Range/Units 15:38 17:14 17:45 WBC (4.5-11.0) X10^3/uL RBC (4.0-5.2) X10^6/uL Hgb (12.0-16.0) g/dL Hct (36-46) % MCV (80-100) fL MCH (26-34) PG MCHC (30-36) % RDW (11.6-14.8) % Plt Count (150-400) X10^3/uL Neut % (Auto) (50-75) % Lymph % (Auto) (25-40) % [place] % (Auto) (3-14) % Eos % (Auto) (2-4) % Baso % (Auto) (0-2) % Neut # (Auto) (6483-7761) /uL Lymph # (Auto) (4915-7664) /uL [place] # (Auto) (0-900) /uL Eos # (Auto) (0-450) /uL Baso # (Auto) (0-100) /uL PT (10.1-12.7) SECONDS INR (0.9-1.3) APTT (26-36) SECONDS D-Dimer 315 (<500) ng/ml Sodium (137-145) mmol/L Potassium (3.4-5.1) mmol/L Chloride (98-107) mmol/L Carbon Dioxide (22-32) mmol/L BUN (7-17) mg/dL Creatinine (0.52-1.04) mg/dL Estimated GFR (>60) mL/min BUN/Creatinine Ratio (6-22) Glucose (70-100) mg/dL Calcium (8.4-10.2) mg/dL Magnesium (1.6-2.3) mg/dL Total Bilirubin (0.2-1.3) mg/dL AST (14-36) IU/L ALT (<35) IU/L Alkaline Phosphatase (38-126) U/L Total Creatine Kinase (30-135) U/L CK-MB (CK-2) CK-MB (CK-2) Rel Index Troponin I < 0.012 (0.01-0.034) ng/mL Total Protein (6.3-8.2) g/dL Albumin (3.5-5.0) g/dL Globulin (1.7-4.1) g/dL Albumin/Globulin Ratio (1.0-2.8) Lipase (23-300) U/L SARS-CoV-2 (PCR) Negative (Negative) Point of Care Testing Test Results Negative Urine Dip Bedside Urine Glucose Negative Bedside Urine Bilirubin - Negative Bedside Urine Ketone - Negative Urine Specific [place] 1.020 Bedside Urine Occult Blood +/- Bedside Urine pH 6.5 Bedside Urine Protein - Negative Bedside Urine Urobilinogen - Negative Bedside Urine Nitrite - Negative Bedside Urine Leukocytes - Negative Esterase Imaging Data Chest x-ray: Radiologist's Impression: PROCEDURE:? XR CHEST 1V ? INDICATIONS:? chest pain ? TECHNIQUE:? One view of the chest was acquired.? ? COMPARISON:? None. ? FINDINGS:? ? Surgical changes and devices:? None.? ? Lungs and pleura:? Rounded opacity is noted in the lateral aspect of the lungs bases likely nipple shadows. ? Mediastinum:? Mediastinal contours appear normal.? Heart size is normal.? ? Bones and chest wall:? No suspicious bony lesions.? Overlying soft tissues appear unremarkable.? ? IMPRESSION:? No effusions or consolidations. ECG Data Attestation: I personally reviewed and interpreted this ECG as follows: Interpretation: Sinus rhythm Ventricular rate is 77 Normal axis Normal QRS Normal QTC No ST T wave changes Repeat EKG Sinus rhythm Ventricular rate is 61 Normal axis Normal QRS Normal QTC No ST T wave changes MDM Narrative Medical decision making narrative: Patient has had symptoms for the past week. It is positional. I have very high suspicion that this is peripheral vertigo. Her workup here in the emergency department as far as her chest pain is unremarkable. She has a low risk heart score. Chest x-ray is unremarkable. No indication for antibiotics. Will discharge patient home with meclizine. She was also given instructions for the flu maneuver to try at home. No indication for further radiologic studies. She was given return precautions. She expressed understanding and agreement. Discharge Plan Departure Patient Disposition: Home Clinical Impression: Vertigo, Atypical chest pain Instructions: DI for Vertigo Activity Restrictions/Additional Instructions: I do recommend that you continue to take all of your medications as directed. I also recommend that you watch how to to the Wilmer maneuver. You can use the meclizine as needed for your symptoms. Return to the emergency department for new or worsening symptoms. Prescriptions: New meclizine 25 mg tablet 25 mg PO BID PRN (Reason: dizziness) Qty: 20 0RF No Action econazole 1 % cream 1 applictn TOP BID Qty: 30 0RF cyclobenzaprine 10 mg tablet 10 mg PO BEDTIME Qty: 30 1RF sumatriptan succinate 50 mg tablet See Rx Instructions PO .COMPLEX Qty: 20 1RF Rx Instructions: take 1 tab at onset of headache; if no relief may repeat 1 tab after at least 2 hrs; max = 4 tabs/24 hr PO norgestimate-ethinyl estradiol [Tri-Sprintec (28)] 0.18/0.215/0.25 mg-35 mcg (28) tablet 1 tab PO DAILY Qty: 84 3RF epinephrine [EpiPen 2-Gerald] 0.3 mg/0.3 mL auto-injector 0.3 mg IM Q5-15M PRN (Reason: anaphylaxis) Qty: 2 3RF Rx Instructions: do not exceed 3 doses per episode prednisone 20 mg tablet 20 mg PO DAILY Qty: 5 0RF Rx Instructions: administer with food or milk Referrals: Jessica Bains MD [Primary Care Provider] - Stand Alone Forms: Patient Portal/API
[2023-01-13] MEDS: MECLIZINE HCL 12.5 MG TABLET 25 MG PO (18:50)
== END 2023-01-13 19:01 | disposition home or self-care (01) ==
PROVIDERS: Emergency Medicine; Emergency Provider Emergency Medicine; PCP Family Medicine
DX: R07.89 Other chest pain (principal); R42 Dizziness and giddiness; Z20.822 Contact with and (suspected) exposure to COVID-19
CPT/HCPCS: 36415; 71045; 80053; 81003; 81025; 82550; 83690; 83735; 84484; 85025; 85379; 85610; 85730; 87635; 93005; 99284; C9803

== ENCOUNTER 2024-02-22 17:47 | Emergency (ER) | payer OTHER, SELFPAY ==
[2024-02-22 17:51] VITALS: BP 119/68; PULSE 74; RESP 16; TEMP 36.8; O2SAT 99; BMI 18.1
[2024-02-22 18:34] VITALS: PULSE 68
--- NOTE | 2024-02-22 19:20 | ED_ITS ---
HPI - Extremity Injury (Upper) General Chief Complaint: Extremity Injury, Upper Stated Complaint: L&I rt index finger inj Time Seen by Provider: 02/22/24 19:00 Source: patient Mode of arrival: Ambulatory History of Present Illness HPI narrative: 38-year-old female sustained laceration to right index finger at work today 3:30 p.m., caught on a slicer, no other injuries. Presented to walk-in clinic, referred here for further evaluation and repair. Last tetanus was greater than 5 years, given tetanus shot. Local dressing applied. Related Data Previous Rx's Medication Instructions Recorded epinephrine 0.3 mg/0.3 mL 0.3 mg (0.3 mL) IM Q5-15M PRN 08/26/23 injection, auto-injector (EpiPen anaphylaxis #2 ea 2-Gerald) cephalexin 500 mg capsule 500 mg PO QID 7 days #28 caps 02/22/24 Allergies Allergy/AdvReac Type Severity Reaction Status Date / Time shrimp Allergy Intermediate Anaphylaxis Verified 02/22/24 17:54 Review of Systems Review of Systems Narrative: see HPI Patient History Medical History Muscle spasm Otitis media with effusion Bronchitis Encounter for routine gynecological examination Bacterial vaginitis Tinea corporis History of short term memory loss History of developmental delay Vertigo Hearing loss Miscarriage (~2017) Irregular menstrual cycle Pancreatitis (~2008) Generalized abdominal pain Chronic hepatitis B Social History Smoking Status: Never smoker Smoking Status: Never smoker alcohol intake frequency: a few times a month Substance Use Type: does not use Exam Narrative Exam Narrative: GENERAL: Well-developed patient, in mild distress. HEAD: Atraumatic. Normocephalic. EYES: Pupils equal round and reactive. Extraocular motions intact. No scleral icterus. No injection or drainage. ENT: Nose without bleeding, purulent drainage. Throat without erythema, tonsillar hypertrophy or exudate. Airway patent. NECK: Trachea midline. Non tender CARDIOVASCULAR: Regular rate and rhythm without murmurs, gallops, or rubs. RESPIRATORY: Clear to auscultation. Breath sounds equal bilaterally. No wheezes, rales, or rhonchi. GASTROINTESTINAL: Abdomen soft, non-tender, nondistended. EXTREMITIES: Right index dorsal medial oblique laceration 1.5cm length distal phalanx, approaching nailbed margin. Nail appears intact. No subungual hematoma. No other finger injuries. No visible joint or foreign body or bony structures. No edema or joint tenderness. BACK: Nontender without deformity or crepitance. No flank tenderness. NEURO: AOx3. SKIN: No rash or erythema of visible areas Initial Vital Signs Initial Vital Signs: Vital Signs Temperature 98.2 F 02/22/24 17:51 Pulse Rate 74 02/22/24 17:51 Respiratory Rate 16 02/22/24 17:51 Blood Pressure 119/68 02/22/24 17:51 Pulse Oximetry 99 02/22/24 17:51 Oxygen Delivery Method Room Air 02/22/24 17:51 Procedures Laceration Repair Laceration 1: Time of procedure: 20:13 Site: hand (Right distal index finger dorsal medial distal finger extending to the nail margin) Side (If applicable): right Size (cm): 1.5 Description: linear Depth: simple, single layer Local Anesthetic: lidocaine 1% (Bilateral digital block) Amount of anesthesia used (mL): 3 Skin layer closed with: nylon Skin layer suture size: 5-0 Number of sutures: 5 Technique: simple, interrupted Course Orders Ordered: ED Orders 02/22/24 19:19 XR finger RT min 2V Stat Discontinued Medications Bacitracin (Bacitracin Oint 0.9 Gm Pckt) 1 applic TOP NOW ONE Stop: 02/22/24 20:11 Last Admin: 02/22/24 20:35 Dose: 1 applic Documented By: RAYMUNDO Cephalexin HCl (Cephalexin 250 Mg Capsule) 500 mg PO NOW ONE Stop: 02/22/24 20:20 Last Admin: 02/22/24 20:35 Dose: 500 mg Documented By: RAYMUNDO Tramadol HCl (Tramadol 50 Mg Prepack) 1 bottle MISC DIRECTED ONE Stop: 02/22/24 20:21 Last Admin: 02/22/24 20:34 Dose: 1 bottle Documented By: RAYMUNDO Vital Signs Vital signs: Vital Signs - 8 hr 02/22/24 20:34 Pulse Rate 74 Respiratory Rate 18 Blood Pressure 111/72 Pulse Oximetry 99 Oxygen Delivery Method Room Air MDM - Extremity Injury (Upper) Imaging Data Extremity x-ray #1: Radiologist's Impression: [address] [address] XRay Report Signed Patient: Jesus Junior MR#: [id number] : 1985 Acct:[id number] Age/Sex: 38 / F Date of Service: 02/22/24 Loc: ED Accession Number: [id number] Procedure: XR finger RT min 2V Ordering Provider: Marcio Gregory MD PROCEDURE: XR FINGER RT MIN 2V INDICATIONS: lac, eval for fx TECHNIQUE: AP hand, 2 views of the right index finger(s) acquired. COMPARISON: None. FINDINGS: Bones: No fractures or dislocations. No suspicious bony lesions. Soft tissues: No suspicious soft tissue calcifications. Soft tissue injury over the distal tip of the right index finger. IMPRESSION: Soft tissue injury overlying the distal right index finger without underlying fracture. No radiopaque soft tissue foreign body. If there are persistent symptoms or clinical suspicion for pathology, then repeat radiographs or advanced imaging (CT or MRI) may be considered for further evaluation. Dictated by: Ivan Wing M.D. on 02/22/2024 at 20:25 Approved by: Ivan Wing M.D. on 02/22/2024 at 20:26 [facility] Narrative Medical decision making narrative: Finger laceration, tetanus updated, x-ray showed no fracture or foreign body. Primary closure see procedure note. Oral Keflex dose given in the emergency department, prescription for further antibiotics. Patient also informs she might very well lose the fingernail if the matrix was injured. Infection warnings discussed. Patient could do work activity but no use index finger, if that kind of activities ill at her work. [employer] form filled out, claim form number [id number]. Wound check advised in 2 days. Home with family. Discharge Plan Departure Patient Disposition: Home Clinical Impression: Finger laceration Instructions: DI for Laceration Repair Activity Restrictions/Additional Instructions: Right index finger laceration at work, cut by slicer, x-ray without obvious fracture. Wound however approaches the medial margin of the nail bed, it is possible that the nail might be lost at some point and slough off. Nail was kept intact for now. No obvious subungual hematoma blood below the nail I have present. Five sutures after digital block were placed. Tetanus shot was given. At some increased risk of wound infection. First dose cephalexin antibiotic given. Prescription sent to your pharmacy. Wound check advised in 2 days. Can do work but would not use any activity with right index finger, if that is possible at work. Wound check in 2 days advised. Return earlier if any change worsening symptoms or any concerns prior [employer] and [employer] [id number]. Prescriptions: New cephalexin 500 mg capsule 500 mg PO QID 7 Days Qty: 28 0RF No Action epinephrine [EpiPen 2-Gerald] 0.3 mg/0.3 mL auto-injector 0.3 mg IM Q5-15M PRN (Reason: anaphylaxis) Qty: 2 3RF Rx Instructions: do not exceed 3 doses per episode Referrals: Yamilet San MD [Physician] - Janet Jade DO [Primary Care Provider] - Stand Alone Forms: Patient Portal/API
[2024-02-22 20:34] VITALS: BP 111/72; PULSE 74; RESP 18; O2SAT 99
[2024-02-22] MEDS: TRAMADOL 50 MG PREPACK 1 BOTTLE MISC (20:34)
[2024-02-22] MEDS: cephALEXin 250 MG CAPSULE 500 MG PO (20:35)
[2024-02-22] MEDS: BACITRACIN OINT 0.9 GM PCKT 1 APPLIC TOP (20:35)
== END 2024-02-22 20:46 | disposition home or self-care (01) ==
PROVIDERS: Emergency Provider Emergency Medicine; PCP Family Medicine
DX: S61.210A Laceration without foreign body of right index finger without damage to nail, initial encounter (principal); W26.8XXA Contact with other sharp object(s), not elsewhere classified, initial encounter; Y99.0 Civilian activity done for income or pay
CPT/HCPCS: 12001; 64450; 73140; 99283; 99284

== ENCOUNTER → 2025-01-09 17:48 | Outpatient (CLI) | payer OTHER, SELFPAY ==
--- NOTE | 2025-01-09 17:50 | DI.RAD.S_ITS ---
PROCEDURE: XR KNEE RT 3V INDICATIONS: fall onto r knee 3 wk ago R ant/lat tender/swell TECHNIQUE: 3 views of the knee were acquired. COMPARISON: None. FINDINGS: Bones: No acute fractures or dislocations. No suspicious bony lesions. Soft tissues: No joint effusion. No suspicious soft tissue calcifications. IMPRESSION: No acute osseous abnormality. If there is continued clinical concern or persistent symptoms, repeat radiographs or cross-sectional imaging (e.g. CT, MRI) may be helpful for further evaluation. Approved by: Luc Najera M.D. on 01/09/2025 at 18:34
== END ==
LOC: RAD 17:49
PROVIDERS: PCP Family Medicine; Referring Provider Student in an Organized Health Care Education/Training Program; Visit Provider Student in an Organized Health Care Education/Training Program
DX: S83.91XA Sprain of unspecified site of right knee, initial encounter (principal); R20.2 Paresthesia of skin; X58.XXXA Exposure to other specified factors, initial encounter
CPT/HCPCS: 73562

== ENCOUNTER → 2025-02-08 11:00 | Outpatient (CLI) | payer OTHER, SELFPAY ==
--- NOTE | 2025-02-08 11:01 | DI.MRI.S_ITS ---
PROCEDURE: MR KNEE RT WO CON INDICATIONS: Right medial knee pain with locking TECHNIQUE: Noncontrast sagittal PD fast spin echo and T2 fast spin echo with fat saturation, sagittal 3-D FLASH with fat saturation; coronal T1 spin echo and PD fast spin echo with fat saturation, and axial PD fast spin echo with fat saturation through the knee. COMPARISON: None. FINDINGS: Image quality: Excellent. Menisci: The medial and lateral menisci demonstrate normal morphology and internal signal. The meniscal root ligaments appear intact. Cruciate ligaments: The anterior and posterior cruciate ligaments appear intact. Medial structures: The MCL is intact. Low-grade tear of the distal semimembranosusThe iliopsoas, and adductor tendon are unremarkable.. Lateral structures: The lateral collateral ligament, long and short heads of the biceps femoris tendon appear intact. The popliteus tendon appears normal; the popliteofibular ligament appears intact. The posterosuperior and anteroinferior popliteomeniscal fascicles appear intact. The arcuate and fabellofibular ligaments appear intact, on either side of the lateral inferior geniculate artery. Iliotibial band appears normal. Anterior structures: The quadriceps tendon is intact. Mild tendinosis of the distal patellar tendon.. Patellar alignment is normal. No femoral trochlear dysplasia or ventral trochlear prominence. No edema in the infrapatellar fat pad. Bones and cartilage: No bone marrow contusions or fractures. The cartilage of the medial and lateral femorotibial compartments, as well as the patellofemoral compartment, appears normal in thickness. Joint space: There is physiologic knee joint fluid. Trace popliteal cyst. Normal appearing synovial plicae are incidentally noted. IMPRESSION: 1. Low-grade tear of the distal semimembranosus tendon. Trace popliteal cyst. Dictated by: Poppy Mills M.D. on 02/08/2025 at 15:54 Approved by: Poppy Mills M.D. on 02/08/2025 at 16:03
== END ==
PROVIDERS: PCP Family Medicine; Referring Provider Orthopaedic Surgery; Visit Provider Orthopaedic Surgery
DX: S76.311A Strain of muscle, fascia and tendon of the posterior muscle group at thigh level, right thigh, initial encounter (principal); M25.561 Pain in right knee
CPT/HCPCS: 73721